=== PATIENT | female | born 1950 ===

== ENCOUNTER 2024-07-30 04:10 | Inpatient (IN) | payer MEDICARE ==
[~2024-07-30] VITALS: Ht 172.7 cm; Wt 121.0 kg
[2024-07-30] VITALS (58 sets, daily range): BP systolic 119–167; BP diastolic 73–107
[2024-07-30 04:31] LABS: Base Excess Venous -5.5 mmol/L; Bicarbonate Venous 18.9 mmol/L (24.0-30.0); PCO2 Venous 63.2 mmHg (38-42); pH Blood Venous 7.17 (7.34-7.37)
[2024-07-30 04:34] LABS: Hematocrit 47.6 % (33.0-51.0); Hemoglobin 15.7 g/dL (11.5-16.0); Mean Corpuscular HGB 32.6 pg (26.0-34.0); Mean Corpuscular Volume 99 fL (80-100); Mean Platelet Volume 10.9 fL (9.1-12.4); Platelet Count 531 K/mm3 (150-400); RDW Coefficient Variation 13.6 % (11.7-14.2); RDW Standard Deviation 49.7 fL (35.1-46.3); Red Blood Cell Count 4.82 M/mm3 (3.80-5.20); White Blood Cell Count 12.46 K/mm3 (4.00-11.30)
[2024-07-30 04:41] LABS: Calcium, Ionized (POC) 1.26 mmol/L (1.10-1.46); Chloride (POC) 105 mmol/L (98-108); Creatinine (POC) 1.2 mg/dL (0.6-1.0); Glucose (ISTAT POC) 273 mg/dL (70-99); Hemoglobin (POC) 14.6 g/dL (12.0-16.0); Potassium (POC) 4.2 mmol/L (3.5-5.5); Sodium (POC) 142 mmol/L (135-148); Total CO2 (POC) 25 mmol/L (21-32)
[2024-07-30 04:53] LABS: International Normalized Ratio 0.91; Prothrombin Time Results 9.8 Sec (9.7-11.5)
[2024-07-30 04:56] LABS: BASOPHILS ABSOLUTE MAN 0.24 K/mm3 (0.00-0.23); BASOPHILS PERCENT MAN 2 % (0-2); EOSINOPHILS ABSOLUTE MAN 0.87 K/mm3 (0.00-0.68); EOSINOPHILS PERCENT MAN 7 % (0-6); LYMPHOCYTES ABSOLUTE MAN 4.73 K/mm3 (0.84-5.20); LYMPHOCYTES PERCENT MAN 38 % (21-46); MONOCYTES ABSOLUTE MAN 0.87 K/mm3 (0.16-1.47); MONOCYTES PERCENT MAN 7 % (4-13); NEUTROPHILS ABSOLUTE MAN 5.73 K/mm3 (1.96-9.15); SEG NEUTROPHILS PERCENT MAN 46 % (41-73); TOTAL CELLS COUNTED 100
[2024-07-30 04:57] LABS: Alanine Aminotransfer (ALT/SGP 32 U/L (12-78); Albumin, Blood 3.6 g/dL (3.4-5.0); Albumin/Globulin Ratio 1.1 (0.8-1.8); Alk Phos 128 U/L (50-136); Anion Gap 12 mmol/L (3-11); Aspartate Aminotrans (AST/SGOT 27 U/L (12-37); Bilirubin, Total 0.3 mg/dL (0.1-1.0); Blood Urea Nitrogen 17 mg/dL (8-24); Bun/Creatinine Ratio 15.2 (12.0-20.0); CO2, Blood 25 mmol/L (21-32); Calcium, Blood 9.1 mg/dL (8.5-10.1); Chloride, Blood 106 mmol/L (98-108); Creatinine, Blood 1.12 mg/dL (0.40-1.00); Globulin, Blood 3.4 g/dL (2.2-4.0); Glomerular Filtration Rate 70 (60-); Glucose, Blood 263 mg/dL (70-99); Magnesium, Blood 2.3 mg/dL (1.6-2.4); Potassium, Blood 4.2 mmol/L (3.5-5.5); Sodium, Blood 139 mmol/L (136-145)
[2024-07-30] MEDS ORDERED: NS 1,000 ML IV SCH (05:00)
[2024-07-30 06:05] LABS: Influenza A, PCR NEGATIVE (NEGATIVE); Influenza B, PCR NEGATIVE (NEGATIVE); Resp Syncytial Virus, PCR NEGATIVE (NEGATIVE); SARS-Cov-2 (COVID-19) PCR, MMC NEGATIVE (NEGATIVE)
[2024-07-30] MEDS ORDERED: FentaNYL Citrate 50 MCG/ML 2 ML Injection IV ONE (06:40)
[2024-07-30] MEDS ORDERED: Azithromycin 500 MG in NS 250 ML IV ONE (06:50)
[2024-07-30] MEDS ORDERED: CefTRIAXone Sodium 1,000 MG in NS 50 ML IV ONE (06:50)
[2024-07-30 07:11] LABS: Source, Urine Foley catheter
[2024-07-30 07:17] LABS: Appearance, Urine Clear (Clear); Bilirubin, Urine Neg (Neg); Blood, Urine 1+ (Neg); Color, Urine Yellow (P-Yellow); Glucose Qualitative, Urine 3+ (Neg); Ketones, Urine Neg (Neg); Leukocyte Esterase, Urine Neg (Neg); Nitrite, Urine Neg (Neg); Protein, Urine 3+ (Neg); Urobilinogen, Urine NORM (Normal)
[2024-07-30 07:25] LABS: Hyaline Casts 25-50 /lpf (0-2)
[2024-07-30 07:26] LABS: Mucus Light (0-Heavy)
[2024-07-30 07:27] LABS: Bacteria Few /hpf; Calcium Oxalate Crystals Mod /hpf; Squamous Epithelial Cells Mod /hpf (Few); White Blood Cells, Urine 0-2 /hpf (0-5)
[2024-07-30] MEDS ORDERED: propofoL 100 ML IV ONE ×2 (07:46→10:53)
[2024-07-30] MEDS ORDERED: HydrALAZINE HCl 20 MG / ML 1ML Vial IV PRN (07:50)
[2024-07-30] MEDS ORDERED: FLU VACC TS2024-25(6MOS UP)/PF 45 MCG/0.5 ML SYRINGE IM SCH (07:50)
[2024-07-30] MEDS ORDERED: Piperacillin/Tazobactam Sod 4.5 GM in NS 100 ML IV ONE (07:55)
[2024-07-30] MEDS ORDERED: Lactated Ringer's 1,000 ML IV SCH (07:55)
[2024-07-30] MEDS ORDERED: MethylPREDNISolone Sod Succ 125 MG Vial IV SCH (08:00)
[2024-07-30] MEDS ORDERED: FentaNYL Citrate 50 MCG/ML 2 ML Injection IV PRN (08:55)
[2024-07-30] MEDS ORDERED: LORazepam 2 MG/ML 1ML Injection IV PRN (08:55)
[2024-07-30] MEDS ORDERED: ALBU90OI INH (10:42)
[2024-07-30] MEDS ORDERED: Ventolin5 MG/1 ML INH (10:42)
[2024-07-30] MEDS ORDERED: IPRAT-ALBUT 0.5-3 ML INH (10:45)
[2024-07-30] MEDS ORDERED: CLOBETASOL EMOL15 G1 (10:45)
[2024-07-30] MEDS ORDERED: BUPROPION XL150 M1 PO (10:45)
[2024-07-30] MEDS ORDERED: DILT180 PO (10:45)
[2024-07-30] MEDS ORDERED: HYDHCL25 PO (10:46)
[2024-07-30] MEDS ORDERED: [UNRECOGNIZED DRUG - OTHER] SC (10:47)
[2024-07-30] MEDS ORDERED: LOSARTAN POTAS100 M1 PO (10:47)
[2024-07-30] MEDS ORDERED: POTA10T PO (10:48)
[2024-07-30] MEDS ORDERED: PRAV20 PO (10:48)
[2024-07-30] MEDS ORDERED: TRELEGY ELLIPT1 EACH IH (10:49)
[2024-07-30] MEDS ORDERED: TRULICITY4.5 MG/0.5 SC (10:50)
[2024-07-30] MEDS ORDERED: VENL150ER (10:51)
[2024-07-30] MEDS ORDERED: propofoL 100 ML IV SCH (11:00)
--- NOTE | 2024-07-30 11:21 | NUR ---
ASSUMED CARE PT TO ICU 06, ESCORTED BY RT AND ED RN. INTUABTED AND SEDATED, PROPOFOL INFUSING AT 50 MCG/KG/HR. PT ATTEMPTING TO SIT UP IN BED AND IS REACHING FOR TUBES. ONCE IN ICU BED PT IS RESTING BETTER AND IS NO LONGER REACHING FOR LINES. CONTINUOUS CARDIAC MONITORING IN PLACE SHOWS SR-ST, BP STABLE. VENT SETTINGS A/C VC- 16/460/5/50%, O2 SATURATION > 92%. TEMP PAUL PATENT AND DRAINING TO GRAVITY. SEE ADMIT ASSESSMENT FOR FULL DETAILS.
[2024-07-30] MEDS ORDERED: Albuterol 2.5 MG/3 ML VIAL INH PRN (11:25)
[2024-07-30] MEDS ORDERED: Ipratropium/Albuterol SulF 2.5-0.5MG/3 ML Amp INH SCH (11:25)
[2024-07-30] MEDS ORDERED: Insulin Regular 100 UNIT/ML 10ML Vial SC SCH (12:00)
[2024-07-30] MEDS ORDERED: Insulin Human Lispro 100 Units/ML 3ML Syringe SC SCH (12:00)
[2024-07-30] MEDS ORDERED: Hydrogen Peroxide 1.5 % Solution MT SCH (12:00)
[2024-07-30] MEDS ORDERED: CORTISONE60 GM (15:27)
[2024-07-30] MEDS ORDERED: Piperacillin/Tazobactam Sod 4.5 GM in NS 100 ML IV SCH (16:00)
[2024-07-30] MEDS ORDERED: Propofol 10mg/ml 20 ml Vial (Procedural) IV ONE (16:14)
[2024-07-30] MEDS ORDERED: Rocuronium Bromide 10 MG/ML 5ML Injection IV ONE (16:14)
[2024-07-30] MEDS ORDERED: Naloxone HCl 1MG / ML 2ML SYR IV ONE (17:21)
--- NOTE | 2024-07-30 17:26 | NUR ---
SHIFT SUMMARY PT REMAINED INTUBATED AND SEDATED ON PROPOFOL AT 45 MCG/KG/HR T/O ENTIRETY OF SHIFT. UNABLE TO FOLLOW COMMANDS OR MAKE PURPOSEFUL MOVEMENTS. RAAS -4. AFEBRILE. CONTINUOUS CARDIAC MONITORING IN PLACE SHOWS SR-ST, BP STABLE c MAP > 65. VENT SETTINGS A/C VC+ 16/460/5/35% c O2 SATURATIONS > 92%. ETT 7.5 AND 24 AT THE GUMS. OGT TO LIS c BRIGHT YELLOW BILE DRAINAGE. SMALL AMOUNT OF THIN ORAL SECRETIONS OUT. TEMP PAUL PATENT AND DRAINING CLEAR YELLOW URINE TO GRAVITY. 5 THIN SCRATCHLIKE CÁRDENAS TO L JAW/NECK AREA. 2 REDDENED AREAS TO R INNER LEG, BLANCHABLE. PHOTOS OF BOTH IN CHART. SON AT BEDSIDE DURING ADMISSION, UPDATED ON POC. WILL CONTINUE TO MONITOR AND REPORT TO ONCOMING RN.
[2024-07-30] MEDS ORDERED: Cetylpyridinium Chloride 1 EA MISC MT SCH (20:00)
[2024-07-31] VITALS (84 sets, daily range): BP systolic 102–189; BP diastolic 62–110
[2024-07-31 03:39] LABS: Hematocrit 44.4 % (33.0-51.0); Hemoglobin 14.9 g/dL (11.5-16.0); Mean Corpuscular HGB 32.7 pg (26.0-34.0); Mean Corpuscular HGB Conc 33.6 g/dL (31.5-36.5); Mean Corpuscular Volume 97 fL (80-100); Platelet Count 426 K/mm3 (150-400); RDW Coefficient Variation 14.2 % (11.7-14.2); RDW Standard Deviation 50.7 fL (35.1-46.3); Red Blood Cell Count 4.56 M/mm3 (3.80-5.20); White Blood Cell Count 16.01 K/mm3 (4.00-11.30)
[2024-07-31 04:09] LABS: Albumin, Blood 3.5 g/dL (3.4-5.0); Anion Gap 10 mmol/L (3-11); Blood Urea Nitrogen 24 mg/dL (8-24); Bun/Creatinine Ratio 18.3 (12.0-20.0); CO2, Blood 24 mmol/L (21-32); Chloride, Blood 106 mmol/L (98-108); Creatinine, Blood 1.31 mg/dL (0.40-1.00); Glomerular Filtration Rate 43 (60-); Glucose, Blood 226 mg/dL (70-99); Magnesium, Blood 2.3 mg/dL (1.6-2.4); Phosphorus, Blood 3.3 mg/dL (2.5-4.9); Potassium, Blood 4.4 mmol/L (3.5-5.5); Sodium, Blood 136 mmol/L (136-145); Thyroid Stimulating Hormone 0.279 uIU/mL (0.360-4.800)
[2024-07-31 04:11] LABS: Base Excess Venous -1.7 mmol/L; Bicarbonate Venous 22.3 mmol/L (24.0-30.0); pH Blood Venous 7.32 (7.34-7.37)
--- NOTE | 2024-07-31 05:50 | NUR ---
SHIFT SUMMARY PT HAS TOLERATED THERAPY AIDE WITH NO SIGNIFICANT EVENTS OR CHANGES IN STATUS. PT DOES NOT RESPOND TO COMMANDS FOR THIS NURSE, BUT DOES RESPOND TO PAINFUL STIMULI. PT REMAINS INTUBATED AT THIS TIME. BLOOD PRESSURE HAS REMAINED STABLE THROUGH SHIFT. PULSE HAS REMAINED SINUS TACHYCARDIA BUT STEADY IN THE 100s-110s. WILL CONTINUE TO MONITOR UNTIL REPORT PASSED TO DAY SHIFT TEAM.
[2024-07-31] MEDS ORDERED: Enoxaparin 40 MG/0.4 ML SYR SC SCH (09:00)
[2024-07-31] MEDS ORDERED: Azithromycin 500 MG in NS 250 ML IV SCH (09:00)
--- NOTE | 2024-07-31 10:43 | NUR ---
ASSUMED CARE AT 0700 PT LAYING IN BED SEDATED AND INTUBATED. SHE IS SEDATED WITH PROPOFOL INFUSING AT 45MCG/KGMIN; RASS -3; SEE FLOWSHEET FOR TITRATIONS. VENT SETTINGS AC/VC 18/460/5/40%; SMALL AMOUNT OF SECREATIONS FROM ETT. AFEBRILE. HR 90-110'S. SBP 100-160'S. OG TO LIS WITH MINIMAL OUTPUT. PAUL IN PLACE AND DRAINING TO GRAVITY. SEE SHIFT ASSESSMENT FOR FULL ASSESSMENT.
[2024-07-31] MEDS ORDERED: Pantoprazole Sodium 40 MG Injection IV SCH (11:00)
--- NOTE | 2024-07-31 12:24 | NUR ---
EXTUBATION PT EXTUBATED AT 1110 WITH RT, RESIDENT, AND THIS RN; PT SON GUERO AT BEDSIDE. SHE IS NOW ON 2L NC WITH SPO2 >93%. SLOW TO COMMUNICATE BUT IS ORIENTED TO SELF/PLACE/TIME; FOLLOWING DIRECTIONS;
[2024-07-31] MEDS ORDERED: Labetalol HCL 500 MG in Dextrose 5% 150 ML IV SCH (12:50)
[2024-07-31 15:32] LABS: Base Excess Venous -2.7 mmol/L; Bicarbonate Venous 22.8 mmol/L (24.0-30.0); PCO2 Venous 31.8 mmHg (38-42); pH Blood Venous 7.44 (7.34-7.37)
--- NOTE | 2024-07-31 15:35 | NUR ---
UPDATE PT STARTING TO HAVE MORE LABORED BREATHING AND SPO2 DECREASING TO THE LOW 80'S. RT CALLED AND DR EISENBERG AT BEDSIDE. NEW INSTRUCTIONS TO START PT ON BIPAP AND OBTAIN VBG. BIPAP SETTINGS 10/6, FIO2 45%, Vt 550-600, SPO2 NOW 93-94%. PT ALSO STARTED ON LABETALOL GTT FOR SBP >180 CONSISTANTLY AND NOT RESPONSIVE TO PRN HYDRALAZINE. SEE FLOWSHEET FOR TITRATIONS.
[2024-07-31] MEDS ORDERED: Piperacillin/Tazobactam Sod 3.375 GM in NS 100 ML IV SCH (16:00)
[2024-07-31] MEDS ORDERED: MethylPREDNISolone Sod Succ 125 MG Vial IV SCH (18:00)
--- NOTE | 2024-07-31 18:30 | NUR ---
END OF SHIFT SUMMARY NO ACUTE EVENTS SINCE LAST NOTE. SHE IS MORE ALERT NOW AND COMMUNICATING BETTER THAN PREVIOUSLY; SHE IS ABLE TO FIND WORDS AND CONT TO ANSWER QUESTIONS APPROPRIATLY. BIPAP SETTINGS 10/6, FIO2 45%; RR 19, SPO2 97%. AFBRILE. HR 90-120'S. LABETALOL STOPPED AT 1645; SBP NOW 100-120'S. NO BM THIS SHIFT. PAUL IN PLACE AND DRAINING TO GRAVITY. PT SON GUERO AT BEDSIDE MOST OF THE DAY; HE IS APPROPRIATE WITH PT AND STAFF. WILL REPORT TO PM RN WHEN AVAILABLE.
[2024-07-31] MEDS ORDERED: Aspirin 81 MG Chew PO ONE (23:30)
[2024-08-01] VITALS (22 sets, daily range): BP systolic 102–200; BP diastolic 62–126
[2024-08-01] MEDS ORDERED: Melatonin 5 MG Tablet PO ONE (00:20)
[2024-08-01] MEDS ORDERED: QUEtiapine Fumarate 25 MG Tab PO ONE (00:20)
--- NOTE | 2024-08-01 06:45 | NUR ---
SHIFT SUMMARY PT STARTED SHIFT PLEASENT AND A&O X 3-4, AFTER EVENING MEDS WERE PASSED, PT WAS ABLE TO FALL ASLEEP. AROUND MIDNIGHT MED PASSES, PT WAS FOUND SITTING UP IN BED. WHEN ASKED WHAT SHE NEEDED, PT STATES, "NO ONE IS HELPING ME." THIS NURSE TELLS PT THAT I AM HERE TO HELP. PT HAS ISSUES REMEMBERING THIS NURSE, OR HER LOCATION, OR TODAYS DATE. PT ASKED THIS NURSE FOR SOMETHING FROM HER LOCKER, AT WHICH POINT THIS NURSE GAVE HER THE BAG SHE WAS ASKING FOR. PT FOUND HER CELL PHONE AND PULLED IT OUT OF BAG. THIS NURSE ASKED PT WHO SHE WISHED TO CALL TO WHICH PATIENT STATED, "I WANT TO CALL MY SON" PT THEN PRESSED SCREEN BUT DID NOT SEEM TO ACCOMPLISH TASK. AFTER PT HAD RECEIVED SOME ALERTS ON HER CELL PHONE, THIS NURSE LOOKED AT PHONE AND SAW THAT HER SCREEN TO CALL A NUMBER WAS UP AND A SPEED DIAL FOR 911 WAS ON SCREEN. THIS NURSE ASKED PT IF SHE HAD TRIED TO CALL 911, TO WHICH PT STATES, "YES, IM TERRIFIED." THIS NURSE ATTEMPTED TO CALM PT BUT ULTIMATELY CHARGE NURSE WAS CALLED TO BEDSIDE TO ASSIST. WHILE THIS NURSE WAS PREPARING TO CHECK BLOOD GLUCOSE, PT STATES TO CHARGE NURSE, "I THINK HE'S TRYING TO KILL ME." CHARGE NURSE ATTEMPTS TO REASSURE PT AT THIS TIME, AND IS SUCCESSFUL IN CALMING PT. CHARGE NURSE ASSISTS THIS NURSE WITH MIDNIGHT MED PASSES AND GIVING PT MEDICATIONS ORDERED BY PHYSICIAN FOR SLEEP. AFTER PT IS COMFORTABLE IN BED, NO ANXIETY OR PARANOID BEHAVIOR IS EXIBITED FOR REMAINDER OF NIGHT. PT BECAME HYPERTENSIVE LATER IN SHIFT AND WAS RESTARTED ON LABETALOL. PT APPEARS COMFORTABLE IN BED AT THIS TIME. WILL CONTINUE TO MONITOR UNTIL REPORT PASSED TO DAY SHIFT TEAM.
[2024-08-01] MEDS ORDERED: Losartan Potassium 50 MG Tab PO SCH (08:00)
[2024-08-01 08:18] LABS: Hematocrit 39.6 % (33.0-51.0); Hemoglobin 13.7 g/dL (11.5-16.0); Mean Corpuscular HGB Conc 34.6 g/dL (31.5-36.5); Mean Corpuscular Volume 95 fL (80-100); Mean Platelet Volume 11.1 fL (9.1-12.4); Platelet Count 413 K/mm3 (150-400); RDW Coefficient Variation 14.3 % (11.7-14.2); RDW Standard Deviation 49.8 fL (35.1-46.3); Red Blood Cell Count 4.15 M/mm3 (3.80-5.20); White Blood Cell Count 16.88 K/mm3 (4.00-11.30)
[2024-08-01 08:53] LABS: Bun/Creatinine Ratio 35.1 (12.0-20.0); Calcium, Blood 8.5 mg/dL (8.5-10.1); Free Thyroxine 0.87 ng/dL (0.70-1.60); Potassium, Blood 3.9 mmol/L (3.5-5.5); Thyroid Stimulating Hormone 0.728 uIU/mL (0.360-4.800); Triiodothyronine, Free 1.9 pg/mL (2.18-3.98)
[2024-08-01] MEDS ORDERED: CefTRIAXone Sodium 1,000 MG in NS 100 ML IV SCH (09:00)
[2024-08-01] MEDS ORDERED: MethylPREDNISolone Sod Succ 125 MG Vial IV SCH (09:00)
--- NOTE | 2024-08-01 09:35 | NUR ---
THIS RN ASSUMED CARE OF PT AT 0700. PT IS ALERT AND ORIENTED X3, CONFUSED ABOUT THE SITUATION, CALLS APPROPRIATELY. PT HEART RATE IN THE 70s, BLOOD PRESSURE STABLE AT 141/95 MAP OF 110, PT GOT SWITCHED TO PO MEDS FOR BLOOD PRESSURE, PT DENIES CHEST PAIN UPON ASSESSMENT. PT IS ON 3L NC SATTING >92%, SOUNDS CLEAR/DIMINISHED, PT DENIES SHORTNESS OF BREATH. PT HAS PAUL DRAINING TO GRAVITY, AT BEDSIDE, PT WILL BE DOWNGRADED TODAY AND WILL WORK ON PULLING PAUL CATHETER TODAY. PT PASSED SPEECH EVALUATION, NO OTHER INTERVENTIONS AT THIS TIME. PLAN OF CARE CONTINUED.
--- NOTE | 2024-08-01 17:38 | NUR ---
PT SUMMARY PT HAD A GREAT DAY TODAY, PT WAS ABLE TO GET UP WITH PHYSICAL THERAPY AND MAKE IT TO THE CHAIR TODAY AND SAT IN CHAIR FOR 3-4 HOURS TODAY. PT WAS ABLE TO EAT MEALS ON HER OWN, AND SON GUERO WAS AT BEDSIDE MAJORITY OF THE DAY TODAY. PT IS NOW IN BED RESTING, NO ALTERED MENTAL STATUS NOTED THROUGHOUT THE DAY. NO OTHER INTERVENTIONS AT THIS TIME. PLAN OF CARE CONTINUED.
[2024-08-01] MEDS ORDERED: Acetaminophen/Aspirin/Caffeine 250/250/65 MG PO PRN (17:50)
[2024-08-01] MEDS ORDERED: Diltiazem HCl 180 MG Cap.CD PO SCH (18:00)
[2024-08-01] MEDS ORDERED: HyDROXyzine HCl 25 MG Tab PO PRN (18:00)
[2024-08-01] MEDS ORDERED: Mometasone/Formoterol MDI 100/5 mcg 13 GM INH SCH (18:35)
[2024-08-01] MEDS ORDERED: Ipratropium Bromide INH 0.02% 0.5 mg/2.5ML Vial INH SCH (18:35)
[2024-08-01] MEDS ORDERED: Albuterol 2.5 MG/3 ML VIAL INH PRN (18:35)
--- NOTE | 2024-08-01 18:43 | NUR ---
PT UPDATE: THIS RN REVIEWED MEDICATIONS WITH PT AT BEDSIDE THAT PT WAS TAKING OUTSIDE THE HOSPITAL AND HAS BEEN UPDATED PER CHART. DR. PIÑA HAS BEEN NOTIFIED OF THE NEW REVIEWED MED REC. SON GUERO WAS ABLE TO TELL ME WHERE THE PAPER WAS OF LAST PREVIOUS HOSPITAL VISIT WITH LIST OF MEDICATIONS PT TAKES AT HOME, PT WAS ABLE TO CONFIRM WITH THIS RN WHAT MEDICATIONS THEY TAKE AT HOME.
[2024-08-01] MEDS ORDERED: QUEtiapine Fumarate 25 MG Tab PO SCH (21:00)
[2024-08-01] MEDS ORDERED: Insulin Glargine-Yfgn 100 Unit/mL 3 ML SYR SC SCH (21:00)
[2024-08-01] MEDS ORDERED: Melatonin 5 MG Tablet PO SCH (21:00)
[2024-08-02] VITALS (8 sets, daily range): BP systolic 148–200; BP diastolic 80–120
[2024-08-02 03:58] LABS: Hematocrit 42.1 % (33.0-51.0); Hemoglobin 14.2 g/dL (11.5-16.0); Mean Corpuscular HGB 32.3 pg (26.0-34.0); Mean Corpuscular HGB Conc 33.7 g/dL (31.5-36.5); Mean Corpuscular Volume 96 fL (80-100); Mean Platelet Volume 10.7 fL (9.1-12.4); Platelet Count 392 K/mm3 (150-400); RDW Coefficient Variation 14.3 % (11.7-14.2); RDW Standard Deviation 50.2 fL (35.1-46.3); White Blood Cell Count 9.26 K/mm3 (4.00-11.30)
--- NOTE | 2024-08-02 04:55 | NUR ---
SHIFT SUMMARY: PT HAS SHOWN SIGNIFICANT IMPROVEMENT THIS EVENING. SHE WAS ORIENTED APPROPRIATELY THROUGHOUT SHIFT. SHE WAS ABLE TO MAKE NEEDS KNOWN. SHE GOT UP TO THE TOILET WITH THE USE OF A WALKER. PATIENT WAS ON 4LPM NC UNTIL APPROXIMATELY 0330 WHEN SHE WOKE UP WITH SHORTNESS OF BREATH, REQUESTING A BREATHING TREATMENT. HER WORK OF BREATHING APPEARED LABORED. SHE WAS PUT ON BIPAP AND TOLERATED WELL FOR THE REMAINDER OF THE SHIFT.
[2024-08-02 05:54] LABS: Bun/Creatinine Ratio 34.5 (12.0-20.0); Calcium, Blood 8.7 mg/dL (8.5-10.1); Creatinine, Blood 0.96 mg/dL (0.40-1.00); Potassium, Blood 3.4 mmol/L (3.5-5.5)
[2024-08-02] MEDS ORDERED: Insulin Human Lispro 100 Units/ML 3ML Syringe SC SCH (06:00)
[2024-08-02] MEDS ORDERED: Venlafaxine HCl 75 MG CapCR PO SCH (09:00)
[2024-08-02] MEDS ORDERED: Pravastatin Sodium 20 MG Tab PO SCH ×2 (09:00)
[2024-08-02] MEDS ORDERED: Potassium Chloride 10 Meq Tablet SA PO SCH (09:00)
[2024-08-02] MEDS ORDERED: BuPROPion HCl 100 MG Tab PO SCH (09:00)
[2024-08-02] MEDS ORDERED: PredniSONE 20 MG Tab PO SCH (09:00)
[2024-08-02] MEDS ORDERED: buPROPion HCL 150 MG TAB.SR.12H PO SCH (09:00)
[2024-08-02] MEDS ORDERED: HydrALAZINE HCl 20 MG / ML 1ML Vial IV PRN (09:30)
[2024-08-02] MEDS ORDERED: Potassium Chl 20MEQ/Water100ML 100 ML IV STA (09:38)
[2024-08-02] MEDS ORDERED: dilTIAZem HCL 30 MG TAB PO SCH (11:30)
--- NOTE | 2024-08-02 11:37 | NUR ---
START OF SHIFT THIS NURSE ASSUMED CARE AT APPROXIMATELY 0700. PT RESTING COMFORTABLY IN BED WITHOUT ANY COMPLAINTS AT THIS TIME. PT TITRATED OFF OXYGEN THIS AM. WILL CONTINUE WITH THE PLAN OF CARE.
--- NOTE | 2024-08-02 17:35 | NUR ---
TRANSFER TO PCU: PT ARRIVED FROM ICU 6 TO PCU 5 AT APPROX 1615. PT ARRIVED VIA WHEEL CHAIR. PT IS A&OX4 AND IN GOOD SPIRITS. PT ANSWERS QUESTIONS APPROPRIATELY AND FOLLOWS COMMANDS. NO COMPLAINTS OF CP, PRESSURE, TIGHTNESS, SOB, OR ANY OTHER COMPLAINTS. PT ASKED ABOUT CODE STATUS AND PT REQUESTED SOME EDUCATION. PT EDUCATED ABOUT WHAT BEING A "FULL CODE" MEANS. PT STATES THAT SHE DOES NOT WANT TO BE INTUBATED, RECIEVE CPR, BE SHOCKED, OR REVIEVE ANY MEDICATIONS TO BEING HER BACK IF HER HEART STOPPED. PT HYPERTENSIVE ON ARRIVAL AND MEDICATED WITH HYDRALIZINE. WILL CONTINUE TO CARE FOR PT TILL END OF SHIFT.
--- NOTE | 2024-08-02 18:30 | NUR ---
UPDATE: PTS BLOOD PRESSURE 180/80 AFTER HYDRALIZINE. PROVIDER NOTIFIED. PROVIDER WOULD LIKE TO WAIT LONGER AND RECHECK BLOOD PRESSURE IN A COUPLE OF HOURS. PROVIDER NOTIFIED OF PTS WISHES TO BE A DNR. VERBAL ORDER TO PLACE DNR ORDER.
[2024-08-03] VITALS (9 sets, daily range): BP systolic 140–189; BP diastolic 74–100
[2024-08-03 04:57] LABS: PCO2 Arterial 35.7 mmHg (35-45); PO2 Arterial 130 mmHg (80-100); pH Blood Arterial 7.45 (7.35-7.45)
[2024-08-03 04:59] LABS: Bun/Creatinine Ratio 31.6 (12.0-20.0); Calcium, Blood 8.3 mg/dL (8.5-10.1); Creatinine, Blood 0.82 mg/dL (0.40-1.00); Potassium, Blood 3.3 mmol/L (3.5-5.5)
[2024-08-03] MEDS ORDERED: Potassium Chloride 20 MEQ TabCR PO ONE (06:00)
--- NOTE | 2024-08-03 06:04 | NUR ---
SHIFT SUMMARY A&O X4, ABLE TO MAKE NEEDS KNOWN, OBEYS COMMANDS, MOVING ALL EXTREMITIES WITH PURPOSE, 1 PERSON ASSIST TO BRP WITH FWW, REPOSITIONING SELF IN BED. CONTINUOUS SPO2, SPO2 GREATER 90% ON BIPAP 16/8/30% WHILE SLEEPING OR RA WHILE AWAKE, PT DENIES SOB T/O THIS SHIFT CONTINUOUS TELE MONITORING, SINUS 60-80 S, DID TACH UP WITH ACTIVITY TO 120 S, PULSES PRESENT T/O, BP ELEVATED MEDICATED PER ORDERS, PT DENIES CHEST P/P.. BOWEL TONES PRESENT IN ALL 4Q, PT DENIES NAUSEA AND FEELINGS OF CONSTIPATION. URINE YELLOW IN COLOR. PT REPORTING HEAD ACHE AT THE BEGINNING OF THIS SHIFT, PERRLA, MEDICATED PER ORDERS. BED LOWEST POSITION, CALL LIGHT IN REACH, AWAITING TO GIVE REPORT TO ONCOMING RN.
--- NOTE | 2024-08-03 07:54 | NUR ---
ASSUMPTION NOTE: THIS RN TO ASSUME CARE OF PATIENT. PATIENT IS SITTING UP AT THE EDGE OF THE BED AWAITING BREAKFAST. PATIENT DENIED CHEST PAIN/RESSURE. OR FEELING SHORT OF BREATH. HAS CALL LIGHT WITHIN REACH & BED IN LOWEST POSITION.
--- NOTE | 2024-08-03 08:28 | NUR ---
BLOOD PRESSURE: AUTOMATIC BLOOD PRESSURE WAS DONE ON BOTH ARMS & READING WAS WITHIN 200'S, MANUAL BLOOD PRESSURE DONE AND SYSTOLIC 170/90.
--- NOTE | 2024-08-03 10:32 | NUR ---
MD ROUNDED: MD TO BEDSIDE AND ENCOURAGED PATIENT TO GET UP FOR MEALS & AMBULATE. WAS INFROMED THAT PATIENT HAS BEEN AMBULATING WITH FRONT WHEELED WALKER TO BATHROOM AND SITTING AT THE EDGE OF THE BED FOR MEALS. PATIENT IS NOW MEDICAL WITHOUT TELE STATUS.
--- NOTE | 2024-08-03 16:49 | NUR ---
TRANSFER NOTE: PATIENT IS ALERT AND ORIENTED X4, SLOW TO RESPOND. IS ON TELE SHOWING SINUS RYTHM WITH PVC'S IN THE 80S. SATTING >92% ON ROOM AIR, EVEN & UNLABORED RESPIRATIONS AT REST. PATIENT WENT UPSTAIRS VIA WHEELCHAIR WITH ALL PERSONAL BELONGINGS. SON WAS AT BEDSIDE AND AWARE OF THE CHANGE IN FLOORS.
--- NOTE | 2024-08-03 17:32 | NUR ---
PCU TRANSFER: PATIENT ARRIVED TO THE UNIT VIA WHEELCHAIR; SHE WAS ABLE TO SELF TRANSFER ONTO THE BED, SKIN ASSESSED AND IVS. PATIENT SETTLED IN ROOM, CALL LIGHT PROVIDED, NO SIGNS OR SYMPTOMS OF DISTRESS, PLAN OF CARE ONGOING.
[2024-08-04 02:20] VITALS: BP 168/114
--- NOTE | 2024-08-04 03:42 | NUR ---
SHIFT SUMM: PT IS A 74 YO DNR WHO WAS ADMITTED FOR RESP FAILURE. PT IS ON CONT PULSE OX AND IS A 1 PERSON ASSIST WITH WALKER TO THE BATHRROM AND CALLS NEEDED.PT WEARS A CPAP AT NIGHT AND IS ON A CC DIET. PT RECIEVED 3 UNITS OF REG INSULIN FOR BS (SEE EMAR). PT HAS HAD SOME DIARRHEA THIS SHIFT. PT TOLERATED A SF PUDDING WELL AND WAS GIVEN HYDRALAZINE PRN FOR HTN WHEN BP'S MET PARAMETERS. PT HAS CALL LIGHT IN REACH AND MAKES NEEDS KNOWN.
[2024-08-04 07:20] VITALS: BP 171/104
[2024-08-04 09:46] VITALS: BP 153/103
[2024-08-04 14:30] VITALS: BP 163/92
--- NOTE | 2024-08-04 15:32 | NUR ---
DISCHARGE SUMMARY PATIENT LEFT VIA W/C TRANSPORT TO [facility]. CALLED REPORT TO JAN. PATIENT LEFT AROUND 1535. IV REMOVED PRIOR WITHOUT COMPLICATION. DISCHARGE PACKET SENT WITH TRANSPORTER.
== END 2024-08-04 15:35 | DRG 871 ==
LOC: ER 04:10 → EDBD 04:10 → ICUE 07:48 → PCU 08-02 17:08 → MEDS 08-03 17:31
PROVIDERS: Internal Medicine; Student in an Organized Health Care Education/Training Program; ADMIT Internal Medicine
PROC: 0BH17EZ Insertion of Endotracheal Airway into Trachea, Via Natural or Artificial Opening (ICD-10-PCS; principal; 2024-07-30)
PROC: 5A1935Z Respiratory Ventilation, Less than 24 Consecutive Hours (ICD-10-PCS; 2024-07-30)
PROC: 0DH67UZ Insertion of Feeding Device into Stomach, Via Natural or Artificial Opening (ICD-10-PCS; 2024-07-30)
PROC: 3E03329 Introduction of Other Anti-infective into Peripheral Vein, Percutaneous Approach (ICD-10-PCS; 2024-07-30)
PROC: 5A09357 Assistance with Respiratory Ventilation, Less than 24 Consecutive Hours, Continuous Positive Airway Pressure (ICD-10-PCS; 2024-07-31)
PROC: 4A033R1 Measurement of Arterial Saturation, Peripheral, Percutaneous Approach (ICD-10-PCS; 2024-08-03)
DX: A41.9 Sepsis, unspecified organism (principal); G93.41 Metabolic encephalopathy; J15.9 Unspecified bacterial pneumonia; J96.01 Acute respiratory failure with hypoxia; J96.02 Acute respiratory failure with hypercapnia; J44.1 Chronic obstructive pulmonary disease with (acute) exacerbation; E87.4 Mixed disorder of acid-base balance; N17.9 Acute kidney failure, unspecified; I31.39 Other pericardial effusion (noninflammatory); J44.0 Chronic obstructive pulmonary disease with (acute) lower respiratory infection; Z66 Do not resuscitate; Z68.38 Body mass index [BMI] 38.0-38.9, adult; R65.20 Severe sepsis without septic shock; I10 Essential (primary) hypertension; E66.9 Obesity, unspecified; F32.A Depression, unspecified; I16.0 Hypertensive urgency; E87.6 Hypokalemia; E11.65 Type 2 diabetes mellitus with hyperglycemia; G43.909 Migraine, unspecified, not intractable, without status migrainosus; T38.0X5A Adverse effect of glucocorticoids and synthetic analogues, initial encounter; Z79.4 Long term (current) use of insulin; Z90.49 Acquired absence of other specified parts of digestive tract; Z87.891 Personal history of nicotine dependence; Z79.899 Other long term (current) drug therapy
CPT/HCPCS: 0241U; 31500; 36415; 36600; 51702; 71045; 71260; 80047; 80048; 80053; 80069; 81001; 82803; 82947; 83036; 83605; 83735; 83880; 84439; 84443; 84481; 84484; 85014; 85025; 85027; 85610; 87040; 92610; 93005; 93010; 93306; 94002; 94003; 94640; 94660; 94664; 94762; 97110; 97162; 97165; 97530; 97535; 99285-25; A9270; J0360; J0456; J0696; J1650; J1815; J2310; J2470; J2543; J2704; J2919; J3010; J3480; J7030; J7050; J7060; J7512; Q9967

== ENCOUNTER 2024-12-13 19:39 | Emergency (ER) | payer MEDICARE ==
[~2024-12-13] VITALS: Ht 175.3 cm; Wt 102.1 kg
[~2024-12-13 19:39] MED LIST: ALBU90OI INH; AZIT250 PO; BUPROPION XL150 M1 PO; CLOBETASOL EMOL15 G1; CORTISONE60 GM; DILT180 PO; HYDHCL25 PO; IPRAT-ALBUT 0.5-3 ML INH; LOSARTAN POTAS100 M1 PO; POTA10T PO; PRAV20 PO; PRED20 PO; TRELEGY ELLIPT1 EACH IH; TRULICITY4.5 MG/0.5 SC; VENL150ER; Ventolin5 MG/1 ML INH; [UNRECOGNIZED DRUG - OTHER] SC
[2024-12-13] MEDS ORDERED: Albuterol 2.5 MG/3 ML VIAL INH SCH (19:45)
[2024-12-13 19:57] LABS: BASOPHILS ABSOLUTE AUTO 0.08 K/mm3 (0.00-0.23); BASOPHILS PERCENT AUTO 1 % (0-2); EOSINOPHILS ABSOLUTE AUTO 3.27 K/mm3 (0.00-0.68); EOSINOPHILS PERCENT AUTO 19 % (0-6); Hematocrit 46.7 % (33.0-51.0); Hemoglobin 15.8 g/dL (11.5-16.0); IMMATURE GRAN ABSOLUTE AUTO 0.10 K/mm3 (0.00-0.10); IMMATURE GRAN PERCENT AUTO 1 % (0-1); LYMPHOCYTES ABSOLUTE AUTO 3.16 K/mm3 (0.84-5.20); LYMPHOCYTES PERCENT AUTO 18 % (21-46); MONOCYTES ABSOLUTE AUTO 0.93 K/mm3 (0.16-1.47); MONOCYTES PERCENT AUTO 5 % (4-13); Mean Corpuscular HGB Conc 33.8 g/dL (31.5-36.5); Mean Corpuscular Volume 96 fL (80-100); NEUTROPHILS ABSOLUTE AUTO 9.69 K/mm3 (1.96-9.15); NEUTROPHILS PERCENT AUTO 56 % (41-73); NRBC ABSOLUTE 0.00 K/mm3 (0.00-0.02); NRBC Auto 0.0 /100 WBC (0.0-0.2); Platelet Count 573 K/mm3 (150-400); RDW Coefficient Variation 14.0 % (11.7-14.2); RDW Standard Deviation 48.5 fL (35.1-46.3)
[2024-12-13 19:58] LABS: pH Blood Venous 7.35 (7.34-7.37)
[2024-12-13 20:25] LABS: Alanine Aminotransfer (ALT/SGP 31.0 U/L (12-78); Albumin, Blood 3.1 g/dL (3.4-5.0); Albumin/Globulin Ratio 0.8 (0.8-1.8); Anion Gap 10.0 mmol/L (3-11); Aspartate Aminotrans (AST/SGOT 22.0 U/L (12-37); Bilirubin, Total 0.3 mg/dL (0.1-1.0); Blood Urea Nitrogen 14.0 mg/dL (8-24); CO2, Blood 25.0 mmol/L (21-32); Calcium, Blood 9.7 mg/dL (8.5-10.1); Chloride, Blood 104.0 mmol/L (98-108); Creatinine, Blood 1.2 mg/dL (0.40-1.00); Globulin, Blood 3.7 g/dL (2.2-4.0); Glucose, Blood 376.0 mg/dL (70-99); Potassium, Blood 3.8 mmol/L (3.5-5.5); Sodium, Blood 135.0 mmol/L (136-145); Total Protein, Blood 6.8 g/dL (6.4-8.2)
[2024-12-13] MEDS ORDERED: INSULIN AS100 UNIT/8 SQ (20:47)
[2024-12-13] MEDS ORDERED: Prednisone20 MG PO (21:25)
[2024-12-13 22:39] LABS: Calcium, Ionized (POC) 1.26 mmol/L (1.10-1.46); Chloride (POC) 102 mmol/L (98-108); Creatinine (POC) 1.3 mg/dL (0.6-1.0); Glucose (ISTAT POC) 371 mg/dL (70-99); Hematocrit (POC) 47.0 % (36.0-46.0); Hemoglobin (POC) 16.0 g/dL (12.0-16.0); Potassium (POC) 4.0 mmol/L (3.5-5.5); Sodium (POC) 138 mmol/L (135-148); Total CO2 (POC) 27 mmol/L (21-32)
== END 2024-12-13 21:35 | disposition home or self-care (01) ==
LOC: ER 19:39
PROVIDERS: Emergency Medicine
DX: J44.9 Chronic obstructive pulmonary disease, unspecified (principal); E11.9 Type 2 diabetes mellitus without complications; E78.5 Hyperlipidemia, unspecified; Z88.6 Allergy status to analgesic agent; Z88.8 Allergy status to other drugs, medicaments and biological substances; Z79.4 Long term (current) use of insulin; Z79.85 Long-term (current) use of injectable non-insulin antidiabetic drugs; Z79.52 Long term (current) use of systemic steroids; Z79.899 Other long term (current) drug therapy
CPT/HCPCS: 71045; 80047; 80053; 82803; 83880; 84484; 85014; 85025; 93005; 93010; 94644; 94660; 94664; 96374; 99285-25; J2919

== ENCOUNTER 2024-12-28 16:16 | Inpatient (IN) | payer MEDICARE ==
[~2024-12-28] VITALS: Ht 175.3 cm; Wt 98.3 kg
[~2024-12-28 16:16] MED LIST changes: +INSULIN AS100 UNIT/8 SQ; +Prednisone20 MG PO
[2024-12-28] MEDS ORDERED: Albuterol 2.5 MG/3 ML VIAL INH SCH (16:25)
[2024-12-28 16:46] LABS: Hematocrit 46.4 % (33.0-51.0); Hemoglobin 15.3 g/dL (11.5-16.0); Mean Corpuscular HGB Conc 33.0 g/dL (31.5-36.5); Mean Corpuscular Volume 96 fL (80-100); NRBC ABSOLUTE 0.00 K/mm3 (0.00-0.02); NRBC Auto 0.0 /100 WBC (0.0-0.2); Platelet Count 605 K/mm3 (150-400); RDW Coefficient Variation 13.3 % (11.7-14.2); RDW Standard Deviation 47.8 fL (35.1-46.3); pH Blood Venous 7.23 (7.34-7.37)
[2024-12-28] MEDS ORDERED: CefTRIAXone Sodium 1,000 MG in NS 100 ML IV ONE (17:05)
[2024-12-28 17:21] LABS: Alanine Aminotransfer (ALT/SGP 40.0 U/L (12-78); Albumin, Blood 3.3 g/dL (3.4-5.0); Albumin/Globulin Ratio 0.9 (0.8-1.8); Anion Gap 11.0 mmol/L (3-11); Aspartate Aminotrans (AST/SGOT 37.0 U/L (12-37); Bilirubin, Total 0.3 mg/dL (0.1-1.0); Blood Urea Nitrogen 15.0 mg/dL (8-24); CO2, Blood 27.0 mmol/L (21-32); Calcium, Blood 10.0 mg/dL (8.5-10.1); Chloride, Blood 104.0 mmol/L (98-108); Creatinine, Blood 1.16 mg/dL (0.40-1.00); Globulin, Blood 3.6 g/dL (2.2-4.0); Glucose, Blood 261.0 mg/dL (70-99); Potassium, Blood 3.6 mmol/L (3.5-5.5); Sodium, Blood 138.0 mmol/L (136-145); Total Protein, Blood 6.9 g/dL (6.4-8.2)
[2024-12-28 17:58] LABS: Influenza A, PCR NEGATIVE (NEGATIVE); Influenza B, PCR NEGATIVE (NEGATIVE); Resp Syncytial Virus, PCR NEGATIVE (NEGATIVE); SARS-Cov-2 (COVID-19) PCR, MMC NEGATIVE (NEGATIVE)
[2024-12-28 18:08] LABS: BASOPHILS ABSOLUTE MAN 0.00 K/mm3 (0.00-0.23); BASOPHILS PERCENT MAN 0 % (0-2); EOSINOPHILS ABSOLUTE MAN 0.47 K/mm3 (0.00-0.68); EOSINOPHILS PERCENT MAN 2 % (0-6); LYMPHOCYTES ABSOLUTE MAN 5.26 K/mm3 (0.84-5.20); LYMPHOCYTES PERCENT MAN 22 % (21-46); MONOCYTES ABSOLUTE MAN 1.19 K/mm3 (0.16-1.47); MONOCYTES PERCENT MAN 5 % (4-13); NEUTROPHILS ABSOLUTE MAN 16.99 K/mm3 (1.96-9.15); SEG NEUTROPHILS PERCENT MAN 71 % (41-73)
[2024-12-28] MEDS ORDERED: Albuterol 2.5 MG/3 ML VIAL INH PRN (18:50)
[2024-12-28] MEDS ORDERED: Ipratropium/Albuterol SulF 2.5-0.5MG/3 ML Amp INH SCH (18:55)
[2024-12-28] MEDS ORDERED: NS 1,000 ML IV SCH (18:55)
[2024-12-28] MEDS ORDERED: Insulin Human Lispro 100 Units/ML 3ML Syringe SC SCH (21:00)
[2024-12-28] MEDS ORDERED: Insulin Glargine,Hum.Rec.Anlog 100 UNIT/ML 3MLSYR SC SCH (21:00)
[2024-12-28 22:04] VITALS: BP 181/103
[2024-12-28 23:30] VITALS: BP 176/114
[2024-12-29] VITALS (16 sets, daily range): BP systolic 133–210; BP diastolic 75–136
[2024-12-29 00:08] LABS: Glucose, Blood 458 mg/dL (70-99)
[2024-12-29] MEDS ORDERED: Insulin Glargine,Hum.Rec.Anlog 100 UNIT/ML 3MLSYR SC ONE (00:20)
[2024-12-29] MEDS ORDERED: HydrALAZINE HCl 20 MG / ML 1ML Vial IV PRN (00:20)
--- NOTE | 2024-12-29 00:23 | NUR ---
BG: PT HAD HIGH BG UPON ARRIVAL TO FLOOR. PROVIDER NOTIFIED AND 30U LONG ACTING GIVEN AND 4 U SHORT ACTING GIVEN. ORDERS TO RECHECK IN AN HOUR. RECHECK ON FINGER STICK WAS >500. LAB CAME UP AND RADHA WELL. PROVIDER ORDERED LONG ACTING 10 U NOW AND TO RECHECK AT 4AM. PT ALSO HYPERTENSIVE AND PROVIDER ORDERED HYDRALAZINE 10MG IV PRN Q 6 HOURS.
--- NOTE | 2024-12-29 04:04 | NUR ---
BG: PT BG RECHECK AT 4 AM WAS 455. PROVIDER NOTIFIED AND PROVIDER STATED TO JUST RECHECK WITH THE MORNING BG. PT ALSO HYPERTENSIVE AND TACHY. PROVIDER ORDERED HYDRALAZINE ONE TIME NOW.
[2024-12-29] MEDS ORDERED: HydrALAZINE HCl 20 MG / ML 1ML Vial IV ONE (04:05)
[2024-12-29] MEDS ORDERED: Labetalol HCL 5 MG/ML 4ML Injection (Single Dose) IV ONE (05:20)
[2024-12-29 05:30] LABS: Hematocrit 42.2 % (33.0-51.0); Hemoglobin 14.5 g/dL (11.5-16.0); Mean Corpuscular HGB Conc 34.4 g/dL (31.5-36.5); Mean Corpuscular Volume 92 fL (80-100); NRBC ABSOLUTE 0.00 K/mm3 (0.00-0.02); NRBC Auto 0.0 /100 WBC (0.0-0.2); Platelet Count 478 K/mm3 (150-400); RDW Coefficient Variation 13.6 % (11.7-14.2); RDW Standard Deviation 46.0 fL (35.1-46.3)
[2024-12-29 06:11] LABS: Anion Gap 13.0 mmol/L (3-11); Blood Urea Nitrogen 24.0 mg/dL (8-24); CO2, Blood 21.0 mmol/L (21-32); Calcium, Blood 9.3 mg/dL (8.5-10.1); Chloride, Blood 105.0 mmol/L (98-108); Creatinine, Blood 1.0 mg/dL (0.40-1.00); Glucose, Blood 396.0 mg/dL (70-99); Potassium, Blood 4.3 mmol/L (3.5-5.5); Sodium, Blood 135.0 mmol/L (136-145)
--- NOTE | 2024-12-29 07:39 | NUR ---
SUMMARY: PT ARRIVED TO UNIT ON 5LNC, TACHYCARDIC, HYPERTENSIVE AND HYPERGLYCEMIC. PT OXYGENATION WAS MAINTAINING SO O2 NC WAS DECREASED TO 3L AND SATURATIONS MAINTAINED AT 96%. PROVIDER NOTIFIED FOR BG, BLOOD PRESSURE AND PULSE. PROVIDER ORDERED LOSARTAN 50MG ORAL ONE TIME NOW, TO GIVE HER SCHEDULED 30 U LONG ACTING AND 4U SHORT ACTING NOW AND RECHECK BP AND BG IN AN HOUR. PROVIDER WAS NOT CONCERNED ABOUT PULSE AT THAT TIME DUE TO TREATMENTS SHE GOT HE STATED. IN AN HOUR PT WAS STILL HYPERTENSIVE AND BG WAS STILL HIGH. 10U ADDITIONAL LONG ACTING WERE GIVEN AND HYDRALAZINE 10MG IV WAS GIVEN. PROVIDER ORDERED BG RECHECK AT 4 AM. RECHECK PT WAS STILL HYPERGLYCEMIC AND PROVIDER SAID TO CHECK IN AM. PT BLOOD PRESSURE CONTINUED TO INCREASE SO ANOTHER 10MG IV HYRDRALAZINE WAS GIVEN AND THEN TELE WAS PLACED AND LABETALOL IV WAS GIVEN. PT STILL HYPERTENSIVE AND THEN STARTED TO HAVE INCREASED WORK OF BREATHING ON CPAP OVERNIGHT. PT WAS LOOKING ANXIOUS, DIAPHORETIC, USING ACCESORY MUSCLES. THIS RN CALLED PROVIDER AND RT TO COME SEE PT. PT TRIED TO USE BEDSIDE COMMODE SO SHE TOOK OFF HER HER CPAP FOR A FEW MINUTES AND WAS ON THE NASAL CANNULA. RT CAME AND PLACED HER ON BIPAP AND DID A TREATMENT. WHILE WAITING FOR PROVIDER THIS RN CALLED A TAB CARD PRESS OPERATOR. TEAM ARRIVED AND ORDERS WERE PLACED. PTS WORK OF BREATHING DECREASED AND STATED SHE WAS FEELING BETTER. REPORT GIVEN TO DAY SHIFT RN.
--- NOTE | 2024-12-29 07:59 | NUR ---
DR ANAND CALLED TO REVIEW LABS, VS, PT STATUS AND PLAN OF CARE. CARE ONGOING.
[2024-12-29] MEDS ORDERED: Insulin Human Lispro 100 Units/ML 3ML Syringe SC SCH (08:00)
[2024-12-29 08:01] LABS: pH Blood Venous 7.45 (7.34-7.37)
[2024-12-29] MEDS ORDERED: Enoxaparin 40 MG/0.4 ML SYR SC SCH (09:00)
--- NOTE | 2024-12-29 09:15 | NUR ---
DR ANAND CALLED TO REPORT PT VS. NO ORDERS. CARE ONGOING.
[2024-12-29 12:03] LABS: Anion Gap 12.0 mmol/L (3-11); Blood Urea Nitrogen 23.0 mg/dL (8-24); CO2, Blood 23.0 mmol/L (21-32); Calcium, Blood 9.2 mg/dL (8.5-10.1); Chloride, Blood 105.0 mmol/L (98-108); Creatinine, Blood 1.06 mg/dL (0.40-1.00); Glucose, Blood 320.0 mg/dL (70-99); Potassium, Blood 3.8 mmol/L (3.5-5.5); Sodium, Blood 136.0 mmol/L (136-145)
--- NOTE | 2024-12-29 12:10 | NUR ---
RUPESH CALLED DR ANAND TO CLARIFY CARDIZEM ADMINISTRATION. ORDER RECEIVED. CARE ONGOING.
--- NOTE | 2024-12-29 12:11 | NUR ---
NOTE PT AWAKE, ALERT. BIPAP OFF. TRAILED RA. SAT SRTOPPED TO 88% HR INCREASED TO 104BPM. PLACED ON 2L N/C. SAT 94% HR 100. ST. BP HAS CONTINUED TO NORMALIZE. HEADACHE HAS ALMOST RESOLVED. PT REFUSED TYLENOL. AWAITING LUNCH. CARE ONGOING.
[2024-12-29] MEDS ORDERED: Vancomycin (Pharmacy Consult) IV SCH (13:45)
--- NOTE | 2024-12-29 15:34 | NUR ---
BP PT BP 166/99, HR 111. CALLED DR ANAND. ORDERS TO COME. CARE ONGOING.
--- NOTE | 2024-12-29 20:16 | NUR ---
PT CBG 356 PROVIDER NOTIFIED PER ORDER MEDICATE PER EMAR NO ADDITIONAL ACTION
[2024-12-30] VITALS (9 sets, daily range): BP systolic 112–195; BP diastolic 75–124
[2024-12-30] MEDS ORDERED: HydrALAZINE HCl 20 MG / ML 1ML Vial IV ONE (00:50)
--- NOTE | 2024-12-30 04:45 | NUR ---
HTN: CALLED PROVIDER REGARDING 4AM BP OF 195/124. RELAYED TO PROVIDER PT HAS HEADACHE. PROVIDER STATED THAT THERE ARE NO NEW ORDERS NOW LONG SHE ISNT HAVING CHEST PAIN OR SHORT OF BREATH. HE WANTS A RECHECK BEFORE SHIFT CHANGE AND IF IT IS ABOVE 200 SYSTOLLIC TO GIVE HIM A CALL.
[2024-12-30] MEDS ORDERED: FentaNYL Citrate 50 MCG/ML 2 ML Injection IV PRN (05:10)
[2024-12-30 05:42] LABS: BASOPHILS ABSOLUTE AUTO 0.02 K/mm3 (0.00-0.23); BASOPHILS PERCENT AUTO 0 % (0-2); EOSINOPHILS ABSOLUTE AUTO 0.00 K/mm3 (0.00-0.68); EOSINOPHILS PERCENT AUTO 0 % (0-6); Hematocrit 41.8 % (33.0-51.0); Hemoglobin 14.2 g/dL (11.5-16.0); IMMATURE GRAN ABSOLUTE AUTO 0.29 K/mm3 (0.00-0.10); IMMATURE GRAN PERCENT AUTO 1 % (0-1); LYMPHOCYTES ABSOLUTE AUTO 0.58 K/mm3 (0.84-5.20); LYMPHOCYTES PERCENT AUTO 3 % (21-46); MONOCYTES ABSOLUTE AUTO 0.36 K/mm3 (0.16-1.47); MONOCYTES PERCENT AUTO 2 % (4-13); Mean Corpuscular HGB Conc 34.0 g/dL (31.5-36.5); Mean Corpuscular Volume 94 fL (80-100); NEUTROPHILS ABSOLUTE AUTO 20.22 K/mm3 (1.96-9.15); NEUTROPHILS PERCENT AUTO 94 % (41-73); NRBC ABSOLUTE 0.00 K/mm3 (0.00-0.02); NRBC Auto 0.0 /100 WBC (0.0-0.2); Platelet Count 501 K/mm3 (150-400); RDW Coefficient Variation 14.2 % (11.7-14.2); RDW Standard Deviation 49.5 fL (35.1-46.3)
--- NOTE | 2024-12-30 06:00 | NUR ---
SUMMARY: PT AOX4, ON 2L NC, SBA. PT MIDNIGHT BP WAS INCREASED, HYDRALAZINE PRN GIVEN, ON RECHECK BP WAS STILL ELEVATED, PROVIDER CONTACTED AND ADDITIONAL DOSE OF HYDRALAZINE GIVEN. ON RECHECK BP STILL ELEVATED AND PROVIDER STATED NO NEW ORDERS. HE THEN ENTERED LOPRESSOR ORALLY. MEDICATION GIVEN AND ON RECHECK BP SIGNIFICANTLY ELEVATED. PROVIDER STATED NO NEW ORDERS AND TO RECHECK AT SHIFT CHANGE. PT GIVEN FENTANYL AND ATIVAN FOR HEADACHE AND ANXIETY. PT RECEIVED TYLENOL EARLIER IN SHIFT BUT STATES IT DOESNT HELP HER. BM OVERNIGHT AND VOIDING APPROPRIATELY.
[2024-12-30 06:05] LABS: Anion Gap 12.0 mmol/L (3-11); Blood Urea Nitrogen 26.0 mg/dL (8-24); CO2, Blood 23.0 mmol/L (21-32); Calcium, Blood 8.7 mg/dL (8.5-10.1); Chloride, Blood 107.0 mmol/L (98-108); Creatinine, Blood 0.97 mg/dL (0.40-1.00); Glucose, Blood 340.0 mg/dL (70-99); Potassium, Blood 3.7 mmol/L (3.5-5.5); Sodium, Blood 138.0 mmol/L (136-145)
[2024-12-30] MEDS ORDERED: Insulin Glargine,Hum.Rec.Anlog 100 UNIT/ML 3MLSYR SC SCH (09:00)
--- NOTE | 2024-12-30 11:54 | NUR ---
PT CBG 375, CALLED DR ANAND, GIVE NORMAL INS. NO NEW ORDER. DISCUSSED IF START EFFEXOR TODAY. YES. ORDER PLACED.
--- NOTE | 2024-12-30 18:40 | NUR ---
PT PLEASANT TODAY. DISCUSSED HTN WITH PT. SHE STATED HAS NOT BEEN ON ANXIETY MEDS PER HER NORM. DISCUSSSED WITH HER AND PASSED TO . NEW ORDERS MADE AND STARTED. THIS POORNIMA, SHE STATES FEELS MUCH BETTER. BLOOD PRESSURE DOWN FROM THIS AM CONSIDERABLE. SON IN TO VISIT. NO OTHER NEW CONCERNS NOTED. BED IN LOW POSITION, CALL LITE IN REACH. DENIES SOB FOR DAY.
[2024-12-31 00:04] VITALS: BP 140/73
[2024-12-31 06:21] VITALS: BP 157/85
--- NOTE | 2024-12-31 06:34 | NUR ---
Shift Summary: Pt A/Ox4, pleasant, and cooperative with care. Medications given per emar w/ water. Q4h CBG checked and insulin Lispro given appropriately. Pt on telemetry showing NSR at 72 bpm 1 degree AV block w/ PVCs. Lung sounds ascultated with diminished breath sounds in bilateral lower lung french, otherwise clear. Pt slept throughout the night with no SOB noted during shift. VSS with mild hypertensive.
[2024-12-31 07:19] VITALS: BP 154/84
[2024-12-31 07:43] LABS: BASOPHILS ABSOLUTE AUTO 0.01 K/mm3 (0.00-0.23); BASOPHILS PERCENT AUTO 0 % (0-2); EOSINOPHILS ABSOLUTE AUTO 0.00 K/mm3 (0.00-0.68); EOSINOPHILS PERCENT AUTO 0 % (0-6); Hematocrit 40.1 % (33.0-51.0); Hemoglobin 13.4 g/dL (11.5-16.0); IMMATURE GRAN ABSOLUTE AUTO 0.16 K/mm3 (0.00-0.10); IMMATURE GRAN PERCENT AUTO 1 % (0-1); LYMPHOCYTES ABSOLUTE AUTO 0.73 K/mm3 (0.84-5.20); LYMPHOCYTES PERCENT AUTO 4 % (21-46); MONOCYTES ABSOLUTE AUTO 0.44 K/mm3 (0.16-1.47); MONOCYTES PERCENT AUTO 3 % (4-13); Mean Corpuscular HGB Conc 33.4 g/dL (31.5-36.5); Mean Corpuscular Volume 96 fL (80-100); NEUTROPHILS ABSOLUTE AUTO 15.69 K/mm3 (1.96-9.15); NEUTROPHILS PERCENT AUTO 92 % (41-73); NRBC ABSOLUTE 0.00 K/mm3 (0.00-0.02); NRBC Auto 0.0 /100 WBC (0.0-0.2); Platelet Count 471 K/mm3 (150-400); RDW Coefficient Variation 14.4 % (11.7-14.2); RDW Standard Deviation 50.3 fL (35.1-46.3)
[2024-12-31 08:04] LABS: Anion Gap 8.0 mmol/L (3-11); Blood Urea Nitrogen 31.0 mg/dL (8-24); CO2, Blood 27.0 mmol/L (21-32); Calcium, Blood 8.5 mg/dL (8.5-10.1); Chloride, Blood 109.0 mmol/L (98-108); Creatinine, Blood 1.04 mg/dL (0.40-1.00); Glucose, Blood 166.0 mg/dL (70-99); Potassium, Blood 4.0 mmol/L (3.5-5.5); Sodium, Blood 140.0 mmol/L (136-145)
[2024-12-31] MEDS ORDERED: Betamethasone/Clotrimazole Crm 15 gm TOP SCH (09:00)
[2024-12-31 12:22] VITALS: BP 148/77
[2024-12-31 13:44] LABS: Vancomycin, Trough 4.4 ug/mL (5.0-10.0)
[2024-12-31 15:42] VITALS: BP 167/91
--- NOTE | 2024-12-31 17:20 | NUR ---
SHIFT SUMMARY NO ACUTE CHANGES, A/Ox4, ABLE TO MAKE NEEDS KNOWN AND USES CALL SYSTEM APPOPRIATELY. PT DENIES PAIN. BM TODAY. CBG Q4H AND INSULIN ADMINISTERED PER ORDERS/SLIDING SCALE. PT REMAINS ON 2 L/MIN VIA NC AND DENIES SOB. PLAN FOR HOME O2 EVAL, PT/OT EVAL, AND POSSIBLE DC TOMORROW PENDING RECOMMENDATIONS. PT CURRENTLY RESTING IN BED WITH BED IN LOWEST POSITION AND CALL LIGHT WITHIN REACH.
[2024-12-31 19:59] VITALS: BP 145/81
[2025-01-01 04:53] VITALS: BP 187/97
[2025-01-01 05:27] LABS: BASOPHILS ABSOLUTE AUTO 0.01 K/mm3 (0.00-0.23); BASOPHILS PERCENT AUTO 0 % (0-2); EOSINOPHILS ABSOLUTE AUTO 0.03 K/mm3 (0.00-0.68); EOSINOPHILS PERCENT AUTO 0 % (0-6); Hematocrit 42.7 % (33.0-51.0); Hemoglobin 14.5 g/dL (11.5-16.0); IMMATURE GRAN ABSOLUTE AUTO 0.07 K/mm3 (0.00-0.10); IMMATURE GRAN PERCENT AUTO 1 % (0-1); LYMPHOCYTES ABSOLUTE AUTO 1.53 K/mm3 (0.84-5.20); LYMPHOCYTES PERCENT AUTO 12 % (21-46); MONOCYTES ABSOLUTE AUTO 0.90 K/mm3 (0.16-1.47); MONOCYTES PERCENT AUTO 7 % (4-13); Mean Corpuscular HGB Conc 34.0 g/dL (31.5-36.5); Mean Corpuscular Volume 95 fL (80-100); NEUTROPHILS ABSOLUTE AUTO 10.70 K/mm3 (1.96-9.15); NEUTROPHILS PERCENT AUTO 81 % (41-73); NRBC ABSOLUTE 0.00 K/mm3 (0.00-0.02); NRBC Auto 0.0 /100 WBC (0.0-0.2); Platelet Count 518 K/mm3 (150-400); RDW Coefficient Variation 14.0 % (11.7-14.2); RDW Standard Deviation 48.7 fL (35.1-46.3)
--- NOTE | 2025-01-01 05:46 | NUR ---
RENDERER SUMMARY NO ACUTE CHANGES; PT REMAINS ON 1LPM OXYGEN. PT ABLE TO MAKE NEEDS KNOWN AND DENIES PAIN UPON ASSESSMENT. PT CALLING APPROPIATELY AND SBA TO BSC. SLEEP STUDY PERFORMED OVERNIGHT-SET UP BY RT. Q4 CBG PERFORMED WITH NO COVERAGE REQUIRED FOR 0000 AND 0400 CBG RESULTS. PT HAD ELEVATED BLOOD PRESSURE WITH AM VITALS. PRN DOSE OF APRESOLINE GIVEN. CALL LIGHT ACCESSIBLE. CARE WILL CONTINUE UNTIL REPORT GIVEN TO ONCOMING NURSE.
[2025-01-01 06:01] LABS: Anion Gap 6.0 mmol/L (3-11); Blood Urea Nitrogen 29.0 mg/dL (8-24); CO2, Blood 27.0 mmol/L (21-32); Calcium, Blood 8.5 mg/dL (8.5-10.1); Chloride, Blood 109.0 mmol/L (98-108); Creatinine, Blood 0.97 mg/dL (0.40-1.00); Glucose, Blood 88.0 mg/dL (70-99); Potassium, Blood 3.2 mmol/L (3.5-5.5); Sodium, Blood 139.0 mmol/L (136-145)
[2025-01-01 07:54] VITALS: BP 150/84
[2025-01-01 11:41] VITALS: BP 142/85
[2025-01-01] MEDS ORDERED: Prednisone20 MG PO (14:51)
[2025-01-01] MEDS ORDERED: CARV3.125 PO (14:53)
[2025-01-01] MEDS ORDERED: DILT30 PO (14:54)
[2025-01-01] MEDS ORDERED: JARDIANCE10 MG PO (14:55)
[2025-01-01] MEDS ORDERED: CLOBETTC TOP (14:55)
--- NOTE | 2025-01-01 15:21 | NUR ---
DISCHARGE SUMMARY PT DISCHARGED HOME WITH HH SERVICES. NEW RX FAXED TO [facility] PER PT AND SON REQUEST. TELE REMOVED/CLEANED AND RETURNED TO PCU. IV REMOVED PRIOR TO DISCHARGE - SITE APPEARS WNL. DISCHARGE INSTRUCTIONS REVIEWED WITH PT AND PT SON, ALL QUESTIONS ANSWERED. PT ABLE TO STAND PIVOT INDEPENDENTLY TO WC, WHEELED DOWN BY RN TO CAR OPERATED BY PT SON. PT ABLE TO AMBULATE INDEPENDENTLY TO PASSENGER CAR SEAT.
== END 2025-01-01 15:10 | disposition home health service (06) | DRG 189 ==
LOC: ER 16:16 → MEDS 16:17 → ENPENDDIS 01-01 14:23 → MEDS 01-01 15:10
PROVIDERS: Emergency Medicine; Nurse Practitioner Acute Care; Student in an Organized Health Care Education/Training Program; ADMIT Internal Medicine
DX: J96.01 Acute respiratory failure with hypoxia (principal); J44.1 Chronic obstructive pulmonary disease with (acute) exacerbation; E87.4 Mixed disorder of acid-base balance; J96.02 Acute respiratory failure with hypercapnia; I16.0 Hypertensive urgency; E11.9 Type 2 diabetes mellitus without complications; I10 Essential (primary) hypertension; Z88.8 Allergy status to other drugs, medicaments and biological substances; Z79.51 Long term (current) use of inhaled steroids; Z79.899 Other long term (current) drug therapy; Z79.4 Long term (current) use of insulin; Z86.19 Personal history of other infectious and parasitic diseases; F32.A Depression, unspecified; E78.5 Hyperlipidemia, unspecified
CPT/HCPCS: 36415; 71045; 71260; 80048; 80053; 80202; 82803; 82947; 83605; 83880; 84145; 84484; 85025; 85027; 85379; 87040; 87077; 87637; 93005; 93010; 93308; 93321; 94640; 94644; 94660; 94664; 94760; 94761; 94762; 96365; 96375; 97110; 97161; 99285-25; A9270; G0378; J0360; J0456; J0696; J1650; J1938; J2919; J3010; J3373; J7030; J7040; J7050; J7120; J7512; Q9967

== ENCOUNTER 2025-04-07 01:18 | Inpatient (IN) | payer MEDICARE, OTHER ==
[2025-04-07] VITALS (9 sets, daily range): BP systolic 147–200; BP diastolic 95–125
[~2025-04-07] VITALS: Ht 167.6 cm; Wt 94.9 kg
[~2025-04-07 01:18] MED LIST changes: +CARV3.125 PO; +CLOBETTC TOP; +DILT30 PO; +JARDIANCE10 MG PO; -VENL150ER; +VENL150ER PO
[2025-04-07] MEDS ORDERED: Ipratropium/Albuterol SulF 2.5-0.5MG/3 ML Amp INH ONE (01:25)
[2025-04-07 01:37] LABS: pH Blood Venous 7.28 (7.34-7.37)
[2025-04-07 01:52] LABS: BASOPHILS ABSOLUTE AUTO 0.02 K/mm3 (0.00-0.23); BASOPHILS PERCENT AUTO 0 % (0-2); EOSINOPHILS ABSOLUTE AUTO 0.22 K/mm3 (0.00-0.68); EOSINOPHILS PERCENT AUTO 2 % (0-6); Hematocrit 53.5 % (33.0-51.0); Hemoglobin 17.4 g/dL (11.5-16.0); IMMATURE GRAN ABSOLUTE AUTO 0.08 K/mm3 (0.00-0.10); IMMATURE GRAN PERCENT AUTO 1 % (0-1); LYMPHOCYTES ABSOLUTE AUTO 4.30 K/mm3 (0.84-5.20); LYMPHOCYTES PERCENT AUTO 39 % (21-46); MONOCYTES ABSOLUTE AUTO 0.70 K/mm3 (0.16-1.47); MONOCYTES PERCENT AUTO 6 % (4-13); Mean Corpuscular HGB Conc 32.5 g/dL (31.5-36.5); Mean Corpuscular Volume 99 fL (80-100); NEUTROPHILS ABSOLUTE AUTO 5.65 K/mm3 (1.96-9.15); NEUTROPHILS PERCENT AUTO 52 % (41-73); NRBC ABSOLUTE 0.00 K/mm3 (0.00-0.02); NRBC Auto 0.0 /100 WBC (0.0-0.2); Platelet Count 623 K/mm3 (150-400); RDW Coefficient Variation 12.6 % (11.7-14.2); RDW Standard Deviation 46.2 fL (35.1-46.3)
[2025-04-07 01:58] LABS: Prothrombin Time Results 10.2 Sec (9.7-11.5)
[2025-04-07 02:01] LABS: Alanine Aminotransfer (ALT/SGP 103.0 U/L (12-78); Albumin, Blood 3.5 g/dL (3.4-5.0); Albumin/Globulin Ratio 1.0 (0.8-1.8); Anion Gap 10.0 mmol/L (3-11); Aspartate Aminotrans (AST/SGOT 183.0 U/L (12-37); Bilirubin, Total 0.4 mg/dL (0.1-1.0); Blood Urea Nitrogen 19.0 mg/dL (8-24); CO2, Blood 26.0 mmol/L (21-32); Calcium, Blood 9.4 mg/dL (8.5-10.1); Chloride, Blood 106.0 mmol/L (98-108); Creatinine, Blood 1.04 mg/dL (0.40-1.00); Globulin, Blood 3.4 g/dL (2.2-4.0); Glucose, Blood 164.0 mg/dL (70-99); Potassium, Blood 3.9 mmol/L (3.5-5.5); Sodium, Blood 138.0 mmol/L (136-145); Total Protein, Blood 6.9 g/dL (6.4-8.2)
[2025-04-07] MEDS ORDERED: Ipratropium/Albuterol SulF 2.5-0.5MG/3 ML Amp INH PRN (02:15)
[2025-04-07] MEDS ORDERED: FLU VACC TS2025(65UP)/MF59C/PF 45 MCG/0.5 ML SYRINGE IM SCH (02:15)
[2025-04-07] MEDS ORDERED: Ondansetron HCl 2 MG / ML 2ML Vial IV PRN (02:15)
[2025-04-07] MEDS ORDERED: CefTRIAXone Sodium 1,000 MG in NS 50 ML IV ONE (02:20)
[2025-04-07] MEDS ORDERED: NS 1,000 ML IV SCH ×2 (02:20→05:25)
[2025-04-07 02:23] LABS: Magnesium, Blood 2.5 mg/dL (1.6-2.4); Phosphorus, Blood 5.3 mg/dL (2.5-4.9)
[2025-04-07 04:02] LABS: BASOPHILS ABSOLUTE AUTO 0.06 K/mm3 (0.00-0.23); BASOPHILS PERCENT AUTO 0 % (0-2); EOSINOPHILS ABSOLUTE AUTO 0.05 K/mm3 (0.00-0.68); EOSINOPHILS PERCENT AUTO 0 % (0-6); Hematocrit 52.0 % (33.0-51.0); Hemoglobin 16.9 g/dL (11.5-16.0); IMMATURE GRAN ABSOLUTE AUTO 0.08 K/mm3 (0.00-0.10); IMMATURE GRAN PERCENT AUTO 0 % (0-1); LYMPHOCYTES ABSOLUTE AUTO 1.14 K/mm3 (0.84-5.20); LYMPHOCYTES PERCENT AUTO 6 % (21-46); MONOCYTES ABSOLUTE AUTO 1.29 K/mm3 (0.16-1.47); MONOCYTES PERCENT AUTO 7 % (4-13); Mean Corpuscular HGB Conc 32.5 g/dL (31.5-36.5); Mean Corpuscular Volume 98 fL (80-100); NEUTROPHILS ABSOLUTE AUTO 16.00 K/mm3 (1.96-9.15); NEUTROPHILS PERCENT AUTO 86 % (41-73); NRBC ABSOLUTE 0.00 K/mm3 (0.00-0.02); NRBC Auto 0.0 /100 WBC (0.0-0.2); Platelet Count 496 K/mm3 (150-400); RDW Coefficient Variation 12.5 % (11.7-14.2); RDW Standard Deviation 45.5 fL (35.1-46.3)
[2025-04-07 04:28] LABS: Alanine Aminotransfer (ALT/SGP 132.0 U/L (12-78); Albumin, Blood 3.1 g/dL (3.4-5.0); Albumin/Globulin Ratio 1.0 (0.8-1.8); Anion Gap 12.0 mmol/L (3-11); Aspartate Aminotrans (AST/SGOT 237.0 U/L (12-37); Bilirubin, Total 0.3 mg/dL (0.1-1.0); Blood Urea Nitrogen 21.0 mg/dL (8-24); CO2, Blood 20.0 mmol/L (21-32); Calcium, Blood 9.1 mg/dL (8.5-10.1); Chloride, Blood 109.0 mmol/L (98-108); Creatinine, Blood 1.04 mg/dL (0.40-1.00); Globulin, Blood 3.2 g/dL (2.2-4.0); Glucose, Blood 237.0 mg/dL (70-99); Potassium, Blood 4.0 mmol/L (3.5-5.5); Sodium, Blood 137.0 mmol/L (136-145); Total Protein, Blood 6.3 g/dL (6.4-8.2)
--- NOTE | 2025-04-07 04:30 | NUR ---
SHIFT SUMMARY PT ARRIVED TO PCU AROUND 0255. PT SLID FROM GURNEY TO PCU BED. A&O X4, CALM, COOPERATIVE TO CARE. PT IN SINUS TACH, 100'S-110'S. SHE DENIES ANY CP/PRESSURE, NUMB/TINGLING, SBP STABLE. PT WAS BROUGHT UP ON BIPAP, 16/8, 40% FIO2. PT DENIES O2 USE AT BASELINE. SpO2 >92%. PUREWICK PLACED FOR PT FOR SOB. DR. MAURO TO BEDSIDE. NOTIFIED OF STAGE 1 PRESSURE INJURY ON COCCYX. PER DR. MAURO PT ABLE TO TAKE A BREAK FROM BIPAP IF TOLERATED AND HAVE WATER. PT PLACED ON 6L VIA NC AND TOLERATING WELL, SpO2 AT 99%. PT SITTING UP IN BED AT THIS TIME. CALL LIGHT IN REACH. WILL MONITOR PT AND REPORT TO ONCOMING RN.
[2025-04-07] MEDS ORDERED: Sodium Bicarb 8.4% 1 MEQ/ML 50 ML Vial IV ONE (06:00)
[2025-04-07] MEDS ORDERED: Insulin Human Lispro 100 Units/ML 3ML Syringe SC SCH ×2 (07:30→16:30)
[2025-04-07 08:32] LABS: Influenza A, PCR NEGATIVE (NEGATIVE); Influenza B, PCR NEGATIVE (NEGATIVE); Resp Syncytial Virus, PCR NEGATIVE (NEGATIVE); SARS-Cov-2 (COVID-19) PCR, MMC NEGATIVE (NEGATIVE)
[2025-04-07] MEDS ORDERED: Enoxaparin 40 MG/0.4 ML SYR SC SCH (09:00)
[2025-04-07] MEDS ORDERED: Albuterol 2.5 MG/3 ML VIAL INH PRN (12:30)
[2025-04-07] MEDS ORDERED: Formoterol/Mometasone MDI 5/100 mcg 13 GM INH SCH (12:30)
[2025-04-07] MEDS ORDERED: Ipratropium/Albuterol SulF 2.5-0.5MG/3 ML Amp INH SCH (13:00)
--- NOTE | 2025-04-07 13:41 | NUR ---
MORNING SUMMARY REPORT RECIEVED FORM HANDY THOMAS AT ABOUT 0700 THIS MORNING. THE PT HAS BEEN PLEASENTLY A&OX4, SBA TO THE [facility]IR OF [facility], AND SHE MAKES HER NEEDS KNOWN. THE PT HAS BEEN BETWEEN 6L NC AND BIPAP 16/8 @ 40%. THE PT HAS STATED THAT HER SOB HAS IMPROVED GREATLY SINCE ARRIVING TO THE UNIT BUT STILL HAS SOME SOB AT REST THAT IS EXACERBATED WITH ACTIVITY. THE PT HAS NOT APPEAR DYSPNIC THUS FAR TODAY. BREATHING TREATMENTS ORDERED PER DR. DILLARD, THIS WAS DISCUSSED WITH JAMIL WILSON. THE PT HAS BEEN HYPERTENSIVE TODAY. THIS RN CALLED DR. DILLARD AND GOT HOME MEDICATIONS RESTARTED. ABOUT 1210 THIS AFTERNOON THIS RN CALLED DR. DILLARD ABOUT CONTINUED HYPERTENSION, NO PRNS ORDERED AT THIS TIME. ON TELE THE PT HAS BEEN SR/ST 80'S-100'S. SHE HAS DENIED ANY ANGINA OR CHEST PRESSURE SO FAR THIS SHIFT. RESP PANEL SWAB OBTAINED DURIN GBEDSIDE SHIFT REPORT AND RESULTS HAVE BEEN NEGATIVE. THE PT'S SON CAME TO BEDSIDE AND HAS BEEN UPDATED ON CARE. SEE NOTES FOR ANY UPDATES.
[2025-04-07 15:42] LABS: Source, Urine Clean Catch
[2025-04-07 15:45] LABS: Bilirubin, Urine Neg (Neg); Color, Urine Yellow (P-Yellow); Glucose Qualitative, Urine 4+ (Neg); Ketones, Urine 2+ (Neg); Leukocyte Esterase, Urine 1+ (Neg); Protein, Urine Neg (Neg); Specific Gravity, Urine 1.015 (1.003-1.022); Urobilinogen, Urine NORM (Normal)
[2025-04-07 15:52] LABS: Red Blood Cells, Urine 0-2 /hpf (0-2)
[2025-04-07] MEDS ORDERED: Acetaminophen/Aspirin/Caffeine 250/250/65 MG PO PRN (16:15)
[2025-04-07] MEDS ORDERED: Acetaminophen/Aspirin/Caffeine 250/250/65 MG PO ONE (16:15)
--- NOTE | 2025-04-07 17:33 | NUR ---
END OF SHIFT SUMMARY/UPDATES SEE MORNING NOTE THE PT REMAINS A&OX4, 1P SBA TO CHAIR OR BSC, AND IS ABLE TO MAKE HER NEEDS KNOWN. SHE HAS BEEN HAVING WORSENING HYPERTENSION T/O THE SHIFT AND THIS EVENING DR. DILLARD INCREASED THE PT'S ORAL ANTIHYPERTENSIVES. SEE EMAR. THE PT HAD NOTEABLE HEADACHE WITH INCREASED HYPERTENSION. EXCEDERIN WAS STARTED AND GIVEN TO THE PT. WITH THE PT RECIEVING IV STERIODS, THE PT HAS BEEN HAVING CLIMBING BLOOD SUGARS. THIS RN LET DR. DILLARD KNOW ABOUT HYPERGLYCEMIA, AND DR. DILLARD STARTED THE PT ON INSULIN LISPRO HIGH SLIDING SCALE STARTING AT DINNER. THE PT HAS BEEN OFF THE BIPAP THIS EVENING AND HAS BEEN TITRAITED FROM 6LNC TO 4LNC. SHE DENIES ANY INCREASE IN SOB THIS SHIFT. THE PT STILL HAS SOB W/ EXCERTION. CURRENTLY THE PT IS SITTING UP IN THE CHAIR EATING DINNER. CALL LIGHT IN REACH. SEE NOTES FOR UPDATES.
--- NOTE | 2025-04-07 18:02 | NUR ---
HYPERTENSION UPDATE THIS RN CALLED DR. DILLARD ABOUT UPDATED BLOOD PRESSURE OF 173/112 (129) PER PROVIDER REQUEST. DR. DILLARD WANTS TO INCREASE DILTIAZEM 60MG TIDAC AND A ONE TIME ORDER OF 30MG NOW. THE PT'S HEADACHE HAS DISAPATED AFTER RECIEVING 2 TAB OF EXCEDERIN. SEE NOTES FOR UPDATES.
[2025-04-07] MEDS ORDERED: Insulin Glargine 100 Unit/ML 3 ML SYR SC SCH (21:00)
[2025-04-08] VITALS (21 sets, daily range): BP systolic 142–250; BP diastolic 72–127
[2025-04-08] MEDS ORDERED: HydrALAZINE HCl 20 MG / ML 1ML Vial IV PRN ×2 (00:55→02:35)
[2025-04-08] MEDS ORDERED: HydrALAZINE HCl 20 MG / ML 1ML Vial IV ONE (02:35)
[2025-04-08] MEDS ORDERED: Metoprolol Tartrate 1 MG/ML 5 ML VIAL IV PRN (04:00)
[2025-04-08] MEDS ORDERED: Metoprolol Tartrate 1 MG/ML 5 ML VIAL IV ONE (04:00)
[2025-04-08 04:10] LABS: BASOPHILS ABSOLUTE AUTO 0.02 K/mm3 (0.00-0.23); BASOPHILS PERCENT AUTO 0 % (0-2); EOSINOPHILS ABSOLUTE AUTO 0.00 K/mm3 (0.00-0.68); EOSINOPHILS PERCENT AUTO 0 % (0-6); Hematocrit 46.9 % (33.0-51.0); Hemoglobin 16.0 g/dL (11.5-16.0); IMMATURE GRAN ABSOLUTE AUTO 0.11 K/mm3 (0.00-0.10); IMMATURE GRAN PERCENT AUTO 1 % (0-1); LYMPHOCYTES ABSOLUTE AUTO 0.71 K/mm3 (0.84-5.20); LYMPHOCYTES PERCENT AUTO 5 % (21-46); MONOCYTES ABSOLUTE AUTO 0.15 K/mm3 (0.16-1.47); MONOCYTES PERCENT AUTO 1 % (4-13); Mean Corpuscular HGB Conc 34.1 g/dL (31.5-36.5); NEUTROPHILS ABSOLUTE AUTO 13.51 K/mm3 (1.96-9.15); NEUTROPHILS PERCENT AUTO 93 % (41-73); NRBC ABSOLUTE 0.00 K/mm3 (0.00-0.02); NRBC Auto 0.0 /100 WBC (0.0-0.2); Platelet Count 503 K/mm3 (150-400); RDW Coefficient Variation 12.5 % (11.7-14.2); RDW Standard Deviation 43.0 fL (35.1-46.3)
[2025-04-08 04:16] LABS: Mean Corpuscular Volume 93 fL (80-100)
[2025-04-08 04:38] LABS: Alanine Aminotransfer (ALT/SGP 152.0 U/L (12-78); Albumin, Blood 3.4 g/dL (3.4-5.0); Albumin/Globulin Ratio 1.1 (0.8-1.8); Anion Gap 13.0 mmol/L (3-11); Aspartate Aminotrans (AST/SGOT 89.0 U/L (12-37); Bilirubin, Total 0.4 mg/dL (0.1-1.0); Blood Urea Nitrogen 25.0 mg/dL (8-24); CO2, Blood 21.0 mmol/L (21-32); Calcium, Blood 9.2 mg/dL (8.5-10.1); Chloride, Blood 106.0 mmol/L (98-108); Creatinine, Blood 0.83 mg/dL (0.40-1.00); Globulin, Blood 3.0 g/dL (2.2-4.0); Glucose, Blood 314.0 mg/dL (70-99); Potassium, Blood 3.7 mmol/L (3.5-5.5); Sodium, Blood 136.0 mmol/L (136-145); Total Protein, Blood 6.4 g/dL (6.4-8.2)
--- NOTE | 2025-04-08 06:25 | NUR ---
SHIFT SUMMARY PT A&O X4, ABLE TO MAKE NEEDS KNOWN, MOVING ALL EXTREMITIES WITH PURPOSE, REPOSITIONING SELF IN BED, SBA TO BSC. CONTINUOUS SPO2, SPO2 GREATER THAN 92% ON 2L 02 VIA NC, NO SIGNS OF RESPIRATORY DISTRESS NOTED, PT REPORTING IMPROVED WORK OF BREATHING. CONTINUOUS TELE MONITORING, SINUS 80-100 S, BP ELEVATED /MD NOTIFIED T/P THIS SHIFT WITH NEW ORDERS PLACED/ PT REPORTING HEAD ACHE THAT CORRELATED WITH ELEVATED BP, CAP REFILL WNL, PULSES PRESENT T/O, PT DENIES CHEST P/P T/O THIS SHIFT. BOWEL TONES PRESENT IN ALL 4Q, PT DENIES FEELINGS OF CONSTIPATION. VOIDING IND, URINE YELLOW PT REPORTING HEAD ACHE/ MEDICATED PER ORDERS. BED LOWEST POSITION, CALL LIGHT IN REACH, AWAITING TO GIVE REPORT TO ONCOMING RN.
[2025-04-08] MEDS ORDERED: Ipratropium/Albuterol SulF 2.5-0.5MG/3 ML Amp INH SCH ×2 (07:35→13:00)
--- NOTE | 2025-04-08 11:48 | NUR ---
MORNING SUMMARY ASSUMPTION OF CARE FROM OSMANI iCd RN AT ABOUT 0700 THE PT IS A&OX4, CALLS APPROPRAITELY, AND MAKES HER NEEDS KNOWN. SHE IS 1P W/ FWW FOR GAIT AND A SBA FOR STAND AND PIVOT TO CHAIR OR BSC. THE PT HAS BEEN ON 2L NC THIS MORNING AND HAS BEEN TITRAITED TO 0.5 L. THE PT WAS ON RA BUT WANTED SOME OXYGEN FOR COMFORT. BIPAP HAS BEEN D/C'D. THE PT HAS STATED IMPROVEMENT WITH SOB, BUT STILL HAS IT WITH EXCERTION. THE PT HAS BEEN C/O HEADACHE THIS MORNING. EXCEDERIN PRN. THE PT'S HEADACHE IS EXACERBATED WITH HER HYPERTENSION. ON [id number] ROUNDS DR. DILLARD WANTED THE PT'S CARDIZEM D/C'D AND STARTED HER ON HCTZ AND HYDRALIZINE. IV STERIODS D/C'D AND PT STARTED ON ORAL PREDNISONE FOR TOMORROW. THE PT WILL REMAIN PCU WHILE MEDICATIONS ARE BEING ADJUSTED FOR HER HYPERTENSION. NO ACUTE EVENTS THIS MORNING. SEE NOTES FOR UPDATES.
--- NOTE | 2025-04-08 17:11 | NUR ---
END OF SHIFT SUMMARY SEE MORNING NOTE. THE PT REMAINS A&OX4, CALLS APPROPRAITELY, AND MAKES HER NEEDS KNOWN. THE PT HAS BEEN VERY SLEEPY TODAY AND STATED SHE IS NORMALLY "SLEEPY ALL THE TIME" AND HAS BEEN TALKING WITH HER PCP ABOUT IT. THE PT HAS BEEN ABLE TO TRANSFER TO THE BATHROOM TODAY W/ JUST SBA. ON TELE SHE HAS BEEN SR 60'S-100'S. HYPERTENSION HAS SLIGHTLY IMPROVED WITH MEDICATIONS CHANGES, STILL HYPERTENSIVE. THE PT HAS BEEN WITHOUT ANGINA OR CHEST PRESSURE. WHEN HYPERTENSIVE SHE GET HEADACHE BUT HAS BEEN WITHOUT THIS AFTERNOON. EXCEDERIN REMAINS A PRN AND IS AVAILABLE IF NEEDED. THE PT HAS BEEN TITRAITED TO RA TODAY AND HAS DENIED ANY SOB AT REST AND SLIGHT SOB WITH EXCERTION. SHE STATES NOTEABLE IMPROVEMENT WITH HER RESP STATUS. NO ACUTE EVENTS THIS AFTERNOON. SEE NOTES FOR ANY UPDATES.
[2025-04-09] VITALS (8 sets, daily range): BP systolic 124–187; BP diastolic 78–107
[2025-04-09 03:52] LABS: BASOPHILS ABSOLUTE AUTO 0.03 K/mm3 (0.00-0.23); BASOPHILS PERCENT AUTO 0 % (0-2); EOSINOPHILS ABSOLUTE AUTO 0.00 K/mm3 (0.00-0.68); EOSINOPHILS PERCENT AUTO 0 % (0-6); Hematocrit 46.4 % (33.0-51.0); Hemoglobin 15.7 g/dL (11.5-16.0); IMMATURE GRAN ABSOLUTE AUTO 0.09 K/mm3 (0.00-0.10); IMMATURE GRAN PERCENT AUTO 0 % (0-1); LYMPHOCYTES ABSOLUTE AUTO 1.00 K/mm3 (0.84-5.20); LYMPHOCYTES PERCENT AUTO 5 % (21-46); MONOCYTES ABSOLUTE AUTO 1.12 K/mm3 (0.16-1.47); MONOCYTES PERCENT AUTO 6 % (4-13); Mean Corpuscular HGB Conc 33.8 g/dL (31.5-36.5); Mean Corpuscular Volume 94 fL (80-100); NEUTROPHILS ABSOLUTE AUTO 18.16 K/mm3 (1.96-9.15); NEUTROPHILS PERCENT AUTO 89 % (41-73); NRBC ABSOLUTE 0.00 K/mm3 (0.00-0.02); NRBC Auto 0.0 /100 WBC (0.0-0.2); Platelet Count 484 K/mm3 (150-400); RDW Coefficient Variation 12.7 % (11.7-14.2); RDW Standard Deviation 44.5 fL (35.1-46.3)
--- NOTE | 2025-04-09 06:03 | NUR ---
SHIFT SUMMARY PT A&O X4, ABLE TO MAKE NEEDS KNOWN, MOVING ALL EXTREMITIES WITH PURPOSE, REPOSITIONING SELF IN BED, SBA. CONTINUOUS SPO2, SPO2 GREATER THAN 92% ON RA, NO SIGNS OF RESPIRATORY DISTRESS NOTED, PT REPORTING IMPROVED WORK OF BREATHING. CONTINUOUS TELE MONITORING, SINUS 80-100 S, MURMUR HEARD, BP ELEVATED AT TIMES/ PROVIDED PT WITH PRN BP MEDICATIONS PER ORDERS, CAP REFILL WNL, PULSES PRESENT T/O, PT DENIES CHEST P/P T/O THIS SHIFT. BOWEL TONES PRESENT IN ALL 4Q, PT DENIES FEELINGS OF CONSTIPATION. VOIDING IND, URINE YELLOW BED LOWEST POSITION, CALL LIGHT IN REACH, AWAITING TO GIVE REPORT TO ONCOMING RN.
[2025-04-09 06:28] LABS: Anion Gap 11.0 mmol/L (3-11); Blood Urea Nitrogen 28.0 mg/dL (8-24); CO2, Blood 24.0 mmol/L (21-32); Calcium, Blood 9.0 mg/dL (8.5-10.1); Chloride, Blood 102.0 mmol/L (98-108); Creatinine, Blood 0.84 mg/dL (0.40-1.00); Glucose, Blood 219.0 mg/dL (70-99); Potassium, Blood 3.8 mmol/L (3.5-5.5); Sodium, Blood 133.0 mmol/L (136-145)
--- NOTE | 2025-04-09 07:13 | NUR ---
Pt appears to be sleeping during bedside shift report. Sinus tacycardia, 116 bpm noted by telemetry. RR even, unlabored, spo2 98% on room air.
--- NOTE | 2025-04-09 07:54 | NUR ---
Pt awakens easily for vital signs with conversation. States she is feeling weak and very tired. States she is sleeping fine, but just not feeling that well. Noted WBC count elevated from past two days. Sinus tachycardia at rest, 102-116 bpm noted by telemetry. States that her breathing feels ok. No dyspnea, spo2 WNL on room air, RR 12-14/min without dyspnea. Lung sounds are clear. B/P is also WNL. Covered for CBG 270, but pt states she does not have any appetite for breakfast this morning. She prefers to sleep.
--- NOTE | 2025-04-09 08:47 | NUR ---
Heart rate trending upwards, touching 120-122. Pt is sleeping, not in distress. Pt awakened and given Coreg, Oretic and Losartan potassium per eMAR, scheduled meds.
--- NOTE | 2025-04-09 09:39 | NUR ---
hEART RATE HAS TRENDED DOWN, NOW AROUND 100-103 BPM AFTER TAKING LASIX.
--- NOTE | 2025-04-09 11:44 | NUR ---
Walked to the bathroom with juan frias assist. States she is feeling tired; declined shower at this time, declined sitting in recliner. Walked back to bed. Pleasantly conversant.
--- NOTE | 2025-04-09 12:52 | NUR ---
Pt appears to be sleeping comfortably. Heart rate is 89 bpm, Sinus rhythm.
--- NOTE | 2025-04-09 15:24 | NUR ---
Recommended to patient that she get up and move around, walk around the room, get up to the recliner, etc. In particular suggested that she ought to get up for meals at least, to the chair. She says "yes, I know, it's just hard to get motivated". She has been napping for most of the day.
--- NOTE | 2025-04-09 17:10 | NUR ---
Pt OOB to recliner chair for dinner. Tolerating activity well. L hand IV removed due to tenderness and leaking.
--- NOTE | 2025-04-09 18:02 | NUR ---
The patient is back in bed after dinner.
[2025-04-10] VITALS (7 sets, daily range): BP systolic 98–157; BP diastolic 64–107
[2025-04-10 04:03] LABS: BASOPHILS ABSOLUTE AUTO 0.03 K/mm3 (0.00-0.23); BASOPHILS PERCENT AUTO 0 % (0-2); EOSINOPHILS ABSOLUTE AUTO 0.05 K/mm3 (0.00-0.68); EOSINOPHILS PERCENT AUTO 0 % (0-6); Hematocrit 47.7 % (33.0-51.0); Hemoglobin 16.1 g/dL (11.5-16.0); IMMATURE GRAN ABSOLUTE AUTO 0.10 K/mm3 (0.00-0.10); IMMATURE GRAN PERCENT AUTO 1 % (0-1); LYMPHOCYTES ABSOLUTE AUTO 1.61 K/mm3 (0.84-5.20); LYMPHOCYTES PERCENT AUTO 10 % (21-46); MONOCYTES ABSOLUTE AUTO 1.23 K/mm3 (0.16-1.47); MONOCYTES PERCENT AUTO 8 % (4-13); Mean Corpuscular HGB Conc 33.8 g/dL (31.5-36.5); Mean Corpuscular Volume 95 fL (80-100); NEUTROPHILS ABSOLUTE AUTO 12.79 K/mm3 (1.96-9.15); NEUTROPHILS PERCENT AUTO 81 % (41-73); NRBC ABSOLUTE 0.00 K/mm3 (0.00-0.02); NRBC Auto 0.0 /100 WBC (0.0-0.2); Platelet Count 515 K/mm3 (150-400); RDW Coefficient Variation 12.8 % (11.7-14.2); RDW Standard Deviation 44.3 fL (35.1-46.3)
[2025-04-10 04:27] LABS: Anion Gap 11.0 mmol/L (3-11); Blood Urea Nitrogen 34.0 mg/dL (8-24); CO2, Blood 22.0 mmol/L (21-32); Calcium, Blood 9.2 mg/dL (8.5-10.1); Chloride, Blood 102.0 mmol/L (98-108); Creatinine, Blood 0.9 mg/dL (0.40-1.00); Glucose, Blood 158.0 mg/dL (70-99); Magnesium, Blood 2.3 mg/dL (1.6-2.4); Potassium, Blood 3.3 mmol/L (3.5-5.5); Sodium, Blood 132.0 mmol/L (136-145)
--- NOTE | 2025-04-10 06:03 | NUR ---
SHIFT SUMMARY PT A&O X4, REPORTS FEELING TIRED, ABLE TO MAKE NEEDS KNOWN, MOVING ALL EXTREMITIES WITH PURPOSE, REPOSITIONING SELF IN BED, SBA TO BATHROOM. SPO2 GREATER THAN 92% ON RA, NO SIGNS OF RESPIRATORY DISTRESS NOTED. CONTINUOUS TELE MONITORING, SINUS 80-100 S, MURMUR HEARD, BP ELEVATED AT TIMES/ BUT NOT WITHIN LIMITS FOR PRN MEDICATIONS, CAP REFILL WNL, PULSES PRESENT T/O, PT DENIES CHEST P/P T/O THIS SHIFT. BOWEL TONES PRESENT IN ALL 4Q, PT DENIES FEELINGS OF CONSTIPATION. VOIDING IND, URINE YELLOW BED LOWEST POSITION, CALL LIGHT IN REACH, AWAITING TO GIVE REPORT TO ONCOMING RN.
--- NOTE | 2025-04-10 10:15 | NUR ---
Dr. Ronquillo here to see the patient. She is requesting a walker for at home. Plan is to discharge her home today.
--- NOTE | 2025-04-10 10:46 | NUR ---
Assisted pt OOB to walk to bathroom for a shower, at her request. The pt has less energy than she appears to have. She wanted to get up, and take the shower but has to stop after the shower to rest a few minutes before getting up again to dry off and get dressed.
[2025-04-10] MEDS ORDERED: INSULANPEN SC (14:06)
[2025-04-10] MEDS ORDERED: HYDCHL25 PO (14:09)
[2025-04-10] MEDS ORDERED: POTCHL20ER PO (14:09)
[2025-04-10] MEDS ORDERED: Prednisone10 MG PO (14:10)
[2025-04-10] MEDS ORDERED: CARV25 PO (14:50)
--- NOTE | 2025-04-10 15:15 | NUR ---
Discharge instructions were reviewed with the patient; she states she has a hospital follow up appointment on Tuesday at 2 pm with her PCP. Reviewed in detail her medication list--discontinued medications, changed dosages, and new prescriptions. Answered questions which the patient had. Her son came up to the room and carried her new walker and bag of belongings out while the PCT Nanit wheeled the pt out in a wheelchair to the private vehicle.
== END 2025-04-10 15:15 | disposition home or self-care (01) | DRG 189 ==
LOC: ER 01:18 → ERHOLD 01:45 → PCU 01:45
PROVIDERS: Emergency Medicine; Internal Medicine; ADMIT Specialist
PROC: 5A09357 Assistance with Respiratory Ventilation, Less than 24 Consecutive Hours, Continuous Positive Airway Pressure (ICD-10-PCS; principal; 2025-04-07)
PROC: 3E03329 Introduction of Other Anti-infective into Peripheral Vein, Percutaneous Approach (ICD-10-PCS; 2025-04-07)
PROC: 3E02340 Introduction of Influenza Vaccine into Muscle, Percutaneous Approach (ICD-10-PCS; 2025-04-07)
DX: J96.01 Acute respiratory failure with hypoxia (principal); J44.1 Chronic obstructive pulmonary disease with (acute) exacerbation; E87.4 Mixed disorder of acid-base balance; F32.A Depression, unspecified; J96.02 Acute respiratory failure with hypercapnia; E11.22 Type 2 diabetes mellitus with diabetic chronic kidney disease; I12.9 Hypertensive chronic kidney disease with stage 1 through stage 4 chronic kidney disease, or unspecified chronic kidney disease; N18.31 Chronic kidney disease, stage 3a; E78.5 Hyperlipidemia, unspecified; Z90.49 Acquired absence of other specified parts of digestive tract; Z79.85 Long-term (current) use of injectable non-insulin antidiabetic drugs; Z79.51 Long term (current) use of inhaled steroids; Z88.8 Allergy status to other drugs, medicaments and biological substances; Z79.899 Other long term (current) drug therapy; Z79.52 Long term (current) use of systemic steroids; Z86.19 Personal history of other infectious and parasitic diseases; Z98.890 Other specified postprocedural states; Z87.01 Personal history of pneumonia (recurrent); Z23 Encounter for immunization
CPT/HCPCS: 36415; 71045; 80048; 80053; 81001; 82803; 82947; 83605; 83735; 83880; 84100; 84484; 85025; 85610; 85730; 87086; 87637; 93005; 93010; 94640; 94660; 94664; 94760; 94762; 97161; 97530; 99285-25; A9270; J0360; J0456; J0696; J1650; J1815; J2919; J7050; J7512

== ENCOUNTER 2025-04-27 18:36 | Emergency (ER) | payer MEDICARE, OTHER ==
[~2025-04-27] VITALS: Ht 167.6 cm; Wt 90.7 kg
[~2025-04-27 18:36] MED LIST changes: +CARV25 PO; +HYDCHL25 PO; +INSULANPEN SC; +POTCHL20ER PO; +Prednisone10 MG PO
[2025-04-27 19:24] LABS: BASOPHILS ABSOLUTE AUTO 0.04 K/mm3 (0.00-0.23); BASOPHILS PERCENT AUTO 1 % (0-2); EOSINOPHILS ABSOLUTE AUTO 0.43 K/mm3 (0.00-0.68); EOSINOPHILS PERCENT AUTO 7 % (0-6); Hematocrit 43.1 % (33.0-51.0); Hemoglobin 14.4 g/dL (11.5-16.0); IMMATURE GRAN ABSOLUTE AUTO 0.02 K/mm3 (0.00-0.10); IMMATURE GRAN PERCENT AUTO 0 % (0-1); LYMPHOCYTES ABSOLUTE AUTO 1.75 K/mm3 (0.84-5.20); LYMPHOCYTES PERCENT AUTO 26 % (21-46); MONOCYTES ABSOLUTE AUTO 0.45 K/mm3 (0.16-1.47); MONOCYTES PERCENT AUTO 7 % (4-13); Mean Corpuscular HGB Conc 33.4 g/dL (31.5-36.5); Mean Corpuscular Volume 95 fL (80-100); NEUTROPHILS ABSOLUTE AUTO 3.95 K/mm3 (1.96-9.15); NEUTROPHILS PERCENT AUTO 59 % (41-73); NRBC ABSOLUTE 0.00 K/mm3 (0.00-0.02); NRBC Auto 0.0 /100 WBC (0.0-0.2); Platelet Count 490 K/mm3 (150-400); RDW Coefficient Variation 12.6 % (11.7-14.2); RDW Standard Deviation 43.5 fL (35.1-46.3)
[2025-04-27 19:37] LABS: Alanine Aminotransfer (ALT/SGP 72.0 U/L (12-78); Albumin, Blood 3.2 g/dL (3.4-5.0); Albumin/Globulin Ratio 1.1 (0.8-1.8); Anion Gap 9.0 mmol/L (3-11); Aspartate Aminotrans (AST/SGOT 142.0 U/L (12-37); Bilirubin, Total 0.4 mg/dL (0.1-1.0); Blood Urea Nitrogen 27.0 mg/dL (8-24); CO2, Blood 26.0 mmol/L (21-32); Calcium, Blood 9.0 mg/dL (8.5-10.1); Chloride, Blood 110.0 mmol/L (98-108); Creatinine, Blood 1.2 mg/dL (0.40-1.00); Globulin, Blood 2.8 g/dL (2.2-4.0); Glucose, Blood 175.0 mg/dL (70-99); Potassium, Blood 4.2 mmol/L (3.5-5.5); Sodium, Blood 141.0 mmol/L (136-145); Total Protein, Blood 6.0 g/dL (6.4-8.2)
[2025-04-27] MEDS ORDERED: Ipratropium/Albuterol SulF 2.5-0.5MG/3 ML Amp INH ONE (19:50)
[2025-04-27] MEDS ORDERED: Metoclopramide HCl 5MG / ML 2ML Vial IV ONE (20:45)
== END 2025-04-27 21:45 | disposition home or self-care (01) ==
LOC: ER 18:36
PROVIDERS: Student in an Organized Health Care Education/Training Program
DX: R07.89 Other chest pain (principal); J44.9 Chronic obstructive pulmonary disease, unspecified; E11.9 Type 2 diabetes mellitus without complications; F32.A Depression, unspecified; D69.6 Thrombocytopenia, unspecified; Z88.8 Allergy status to other drugs, medicaments and biological substances; Z79.899 Other long term (current) drug therapy; Z79.4 Long term (current) use of insulin
CPT/HCPCS: 71045; 80053; 83690; 84484; 85025; 93005; 93010; 99285-25; J2765